=== PATIENT | female | born 1955 | race Caucasian/White ===

== ENCOUNTER 2018-09-03 01:14 | Outpatient (CLI) | payer OTHER, SELFPAY ==
[2018-09-03 11:39] LABS: Glucose 94 mg/dL (70-100)
[2018-09-03 13:28] LABS: Hemoglobin A1C 5.6 % (4.5-6.2)
== END 2018-09-03 01:34 ==
PROVIDERS: PCP Family Medicine; Visit Provider Family Medicine
DX: R73.01 Impaired fasting glucose (principal); E66.01 Morbid (severe) obesity due to excess calories
CPT/HCPCS: 36415; 82947; 83036

== ENCOUNTER 2018-11-10 18:42 | Outpatient (REF) | payer OTHER, SELFPAY ==
--- NOTE | 2018-11-10 15:45 | SKI_PTH ---
PATIENT: Ruby Ahumada LOC: [facility] U#:[id number] AGE/SX: 63/F ROOM: RE11/10/[address]: Martha Nixon : 1955 BED: DIS: 11/10/2018 SPEC #: [id number] RECD: 11/11/18 12:46 STATUS: DARIUS THRASHER #: [id number] KASSIDY: 11/10/18 15:[address]: Martha Nixon DEPT: Surgical Specimen RECD BY: Rody Darnell Tissues: 1 - SKIN BIOPSY(SHAVE/PUNCH) Procedures: SKIN LEVEL 4 Comments: [id number]
== END 2018-11-10 19:02 ==
LOC: NCHCN 18:42
PROVIDERS: PCP Family Medicine; Visit Provider Family Medicine
DX: L82.1 Other seborrheic keratosis (principal); L98.9 Disorder of the skin and subcutaneous tissue, unspecified
CPT/HCPCS: 88305

== ENCOUNTER 2019-02-24 13:57 | Emergency (ER) | payer OTHER, SELFPAY ==
[2019-02-24 14:02] VITALS: BP 149/79; PULSE 62; RESP 18; TEMP 36.7; O2SAT 98
--- NOTE | 2019-02-24 14:36 | ED.GENADUL_ITS ---
Discharge Plan Disposition Patient Disposition: HOME Condition: Improving Discharge Details Chief Complaint: GenMedical Clinical Impression: Pneumonia, Peripheral neuropathy Primary Care Provider: Martha Nixon ED Provider: Amanda Scherer Home Meds and New Rx's Prescriptions: New amoxicillin-pot clavulanate [Augmentin] 875-125 mg tablet 1 tab PO BID 10 Days Qty: 20 RF: 0 prednisone 50 mg tablet 50 mg PO DAILY 5 Days Qty: 5 RF: 0 benzonatate [Tessalon Perles] 100 mg capsule 100 mg PO TID PRN (Reason: cough) Qty: 10 RF: 0 Continued ergocalciferol (vitamin D2) 400 UNIT tablet 2,000 unit PO DAILY RF: 0 cyanocobalamin (vitamin B-12) [Vitamin B-12] 1,000 MCG tablet 1,000 mcg PO DAILY RF: 0 pramipexole 0.5 MG tablet 0.5 mg PO DAILY RF: 0 colesevelam [WelChol] 625 MG tablet 625 mg PO BID RF: 0 omeprazole 20 MG capsule,delayed release(DR/EC) 20 mg PO DAILY RF: 0 furosemide 20 MG tablet 40 mg PO BID RF: 0 Discharge Instructions Instructions: Peripheral Neuropathy (ED), Pneumonia (ED) Additional Instructions: Take the steroids and antibiotics as directed until finished. Use the albuterol inhaled as needed and directed for cough and the tessalon perles as needed and directed for coughing. Follow-up with your primary care doctor this week for reevaluation and for referral to neurology for further work-up of your chronic left hand numbness. Return immediately to the emergency department with any worsening or new co ncerning symptoms. Discharge Data Discharge Physician: Amanda Scherer Medical Decision Making 63-year-old female with a history of GERD, hypertension, hyperlipidemia, IBS who presents with sore throat and cough for the past week. Shortly after evaluation, patient also admitted to hand and forearm tingling and numbness for the past several months, worse episode with full hand numbness last night. Denies any other symptoms of headache, dizziness, blurry vision. Denies any complaint of fever shortness of breath and states she has been eating and drinking normally. Vitals within normal limits. Scattered wheezing which clears with coughing. No focal deficits on exam. Differential diagnosis includes bronchitis, pneumonia, GERD, allergies. The extremity symptoms appear consistent with peripheral neuropathy rather than a central process. Will send for CT head to rule out acute process as well as chest x-ray and give an albuterol neb treatment. Chest x-ray notes a possible left pneumonia. Patient feels better after neb treatment. We will send home with prednisone, Augmentin, albuterol inhaler and Tessalon Perles. CT head negative. Patient instructed to follow-up with a primary care doctor for referral to neurology for reevaluation and possible EMG. Patient instructed to return here immediately with any worsening or new concerning symptoms. Medical Records Medical records reviewed: Yes I reviewed the patient's medical records. Imaging Data Radiologic Study: Radiologist's impression: CRANIAL CT: A noncontrast enhanced examination was performed. There is no evidence of an intra/extra-axial hemorrhage. Regions of diminished absorption in the frontoparietal white matter would be consistent with small vessel disease. The ventricles are unremarkable. There is no evidence of a skull fracture. The paranasal sinuses are unremarkable. There is no evidence of a mastoid effusion. SUMMARY: No acute intracranial abnormality is identified. Radiologic Study #2: Radiologist's impression: PA AND LATERAL CHEST: The right lung is clear. There are densities adjacent to the left hilum, which could represent a region of pneumonitis. The left lung is otherwise clear. There is no pleural effusion. The cardiovascular structures appear intact. SUMMARY: Findings raising the possibility of an acute pneumonitis involving the left lung. Correlation with the patient's clinical status and follow-up imaging is recommended for further review. HPI General Mode of arrival: ambulatory . Date/Time Provider Initiated Documentation: 02/24/19 14:15 . Limitations to Documentation: no limitations . Information obtained by: patient . HPI Narrative: Patient is a 63-year-old female with a history of GERD, hypertension, hyperlipidemia, IBS who presents to the ED with complaint of cough and sore throat for the past week. States her symptoms started with a scratchy throat and then she developed dry cough or chest congestion. She admits to fatigue and hot and cold chills but denies any known fever. She denies any pain with swallowing and states she has been eating drinking normally. She denies any chest pain, shortness of breath, recent hospital admission, recent antibiotics. She has not taken any other medications for symptoms. Shortly after evaluation, patient also complained of left hand and forearm numbness for the past several months. She states symptoms are mainly in her left fourth and fifth fingers with radiation up her medial forearm, but last night she developed numbness in all fingers on the left hand. She denies any headache, blurry vision, dizziness or any other extremity numbness or weakness. She denies any known injury or excessive use of hands with knitting or computer use. Related Data Home Medications Medication Instructions Recorded Confirmed colesevelam [WelChol] 625 mg PO BID 08/21/13 02/24/19 cyanocobalamin (vitamin B-12) 1,000 mcg PO DAILY 08/21/13 02/24/19 [Vitamin B-12] ergocalciferol (vitamin D2) 2,000 unit PO DAILY 08/21/13 02/24/19 furosemide 40 mg PO BID 08/21/13 02/24/19 omeprazole 20 mg PO DAILY 08/21/13 02/24/19 pramipexole 0.5 mg PO DAILY 08/21/13 02/24/19 amoxicillin-pot clavulanate 1 tab PO BID 10 Days #20 tab 02/24/19 [Augmentin] benzonatate [Tessalon Perles] 100 mg PO TID PRN #10 cap 02/24/19 prednisone 50 mg PO DAILY 5 Days #5 tab 02/24/19 Previous Rx's Medication Instructions Recorded amoxicillin-pot clavulanate 1 tab PO BID 10 Days #20 tab 02/24/19 [Augmentin] benzonatate [Tessalon Perles] 100 mg PO TID PRN #10 cap 02/24/19 prednisone 50 mg PO DAILY 5 Days #5 tab 02/24/19 Allergies Allergy/AdvReac Type Severity Reaction Status Date / Time No Known Allergies Allergy Unverified 02/24/19 14:11 General Stated Complaint: GenMedical YENNY: 3 Review of Systems Review of Systems All systems reviewed & are unremarkable except as noted in HPI and below Constitutional Reports as per HPI, Denies chills and Denies fever(s) Eyes Denies blurry vision ENT Denies dizziness, Denies sore throat and Denies throat swelling Cardiovascular Denies chest pain and Denies dyspnea Respiratory Reports cough and Denies dyspnea Gastrointestinal Denies abdominal pain, Denies diarrhea and Denies vomiting Genitourinary Denies hematuria and Denies dysuria Musculoskeletal Denies back pain and Reports numbness Integumentary/Breasts Denies lesions and Denies rash Neurologic Denies dizziness, Denies focal weakness and Reports numbness Allergic/Immunologic Denies throat swelling [facility] Medical History History of IBS (Acute) Hx of hyperlipidemia (Acute) GERD (gastroesophageal reflux disease) (Chronic) HTN (hypertension) (Chronic) Surgical History History of bunionectomy (Acute) H/O section (Chronic) History of tonsillectomy (Chronic) Hx of cholecystectomy (Chronic) Social History Smoking/Tobacco Use Status: Never Alcohol Intake: never Drug use: Never Do you feel safe at home: Yes Do you feel safe in your relationship?: Yes Exam Const General: cooperative and healthy appearing Orientation: alert and awake HENMT Head: normal to inspection Ears: hearing grossly normal bilaterally, external ears normal and TM's normal bilaterally General nose exam: external nose normal Face and sinus: normal facial exam Mouth: oral mucosae normal Teeth and gingiva: dentition normal Throat: posterior oropharynx normal Eyes General: appearance normal, both eyes and all related structures Eyelids: eyelids normal Pupils: PERRL EOM: EOM intact bilaterally Neck Neck: normal visual inspection Lymphatic: no lymphadenopathy noted Chest Chest: normal inspection of the chest Resp Effort & Inspection: normal respiratory effort and able to speak in complete sentences Auscultation: no rhonchi and wheezes scattered wheezes Cardio Rate: regular rate Rhythm: regular rhythm GI Inspection: normal to inspection Palpation: soft, not firm, no guarding, no hepatosplenomegaly, no masses and nontender Auscultation: normal bowel sounds Skin General skin exam: no rashes or lesions noted Neuro General: alert and awake Cognition: normal cognition Speech: speech normal Gait: normal gait Motor: muscle tone normal throughout, strength 5/5 throughout and other (Normal left hand radial/median/ulnar motor nerve function.) Sensory Exam: no sensory deficits noted Extrem General: normal to inspection, full ROM and normal capillary refill Other: Left hand and forearm normal to inspection. No evidence of trauma or rash. No edema, ecchymosis or erythema. Psych Appearance: grossly normal Mental Status: mental status grossly normal Speech and Movement: speech and movement normal Affect: normal affect Thought Process: normal Course Vital Signs Temperature 98.1 F 02/24/19 14:02 Pulse 62 02/24/19 14:02 Respiratory Rate 18 02/24/19 14:02 Blood Pressure 149/79 H 02/24/19 14:02 Pulse Oximetry 98 02/24/19 14:02 Temperature 98.1 F 02/24/19 14:02 Temperature Source Skin 02/24/19 14:02 Pulse 62 02/24/19 14:02 Respiratory Rate 18 02/24/19 14:02 Respiratory Effort 02/24/19 14:09 Respiratory Depth Normal 02/24/19 14:09 Respiratory Pattern Normal 02/24/19 14:09 Blood Pressure 149/79 H 02/24/19 14:02 Pulse Oximetry 98 02/24/19 14:02 Oxygen Delivery Method Room Air 02/24/19 14:02 Oxygen Flow Rate 0 02/24/19 14:02 Pain Level 2 02/24/19 14:02
--- NOTE | 2019-02-24 15:18 | DI.CT_ITS ---
SYMPTOMS/DIAGNOSIS: LEFT HAND NUMBNESS, ? ACUTE CEREBROVASCULAR ACCIDENT CRANIAL CT: A noncontrast enhanced examination was performed. There is no evidence of an intra/extra-axial hemorrhage. Regions of diminished absorption in the frontoparietal white matter would be consistent with small vessel disease. The ventricles are unremarkable. There is no evidence of a skull fracture. The paranasal sinuses are unremarkable. There is no evidence of a mastoid effusion. SUMMARY: No acute intracranial abnormality is identified.
--- NOTE | 2019-02-24 15:26 | DI.RAD_ITS ---
SYMPTOMS/DIAGNOSIS: COUGH, ? ACUTE DISEASE PA AND LATERAL CHEST: The right lung is clear. There are densities adjacent to the left hilum, which could represent a region of pneumonitis. The left lung is otherwise clear. There is no pleural effusion. The cardiovascular structures appear intact. SUMMARY: Findings raising the possibility of an acute pneumonitis involving the left lung. Correlation with the patient's clinical status and follow-up imaging is recommended for further review.
[2019-02-24] MEDS: Albuterol/Ipratropium 3 ML UPD VIAL UPD (15:28)
[2019-02-24 16:45] VITALS: BP 149/79; PULSE 62; RESP 18; O2SAT 98
== END 2019-02-24 16:47 | disposition home or self-care (01) ==
PROVIDERS: Emergency Provider Physician Assistant; PCP Family Medicine
DX: J18.9 Pneumonia, unspecified organism (principal); G62.9 Polyneuropathy, unspecified; I10 Essential (primary) hypertension
CPT/HCPCS: 36415; 94640; 99284; 70450; 71046; J7620

== ENCOUNTER 2019-09-23 01:20 | Outpatient (CLI) | payer OTHER, SELFPAY ==
[2019-09-23 13:18] LABS: Anion Gap 10.2 mmol/L (3-11); BUN 17 mg/dL (7-18); CO2 30.8 mmol/L (21.0-32.0); Calcium 8.8 mg/dL (8.5-10.1); Chloride 103 mmol/L (98-107); Glucose 95 mg/dL (74-106); Potassium 3.9 mmol/L (3.5-5.1); Sodium 144 mmol/L (136-145)
[2019-09-23 13:21] LABS: Hemoglobin A1C 5.6 % (4.5-6.2)
== END 2019-09-23 01:40 ==
PROVIDERS: PCP Family Medicine; Visit Provider Family Medicine
DX: R73.01 Impaired fasting glucose (principal); R60.9 Edema, unspecified
CPT/HCPCS: 36415; 80048; 83036

== ENCOUNTER 2019-11-05 14:43 | Outpatient (CLI) | payer OTHER, SELFPAY ==
--- NOTE | 2019-11-05 | DI.RAD_ITS ---
EXAM: XR CERVICAL SPINE COMP 4-5V CLINICAL HISTORY: NECK PAIN M54.2, OVER A YEAR TECHNIQUE: COMPARISON: No exams were available for comparison FINDINGS: Seven views were obtained. There may be slight narrowing of the intervertebral disc spaces at C5-6 a nd C6-7. Moderate hypertrophic endplate degenerative changes noted. Particularly involving the mid to lower cervical region. Moderate facet degenerative changes noted as well. No erosive or destruct janis lesion. No fracture seen. On the left there is possible neural foraminal narrowing at the C 3 4 level. On the right there is possible neural foraminal narrowing at the C5-6 level Calcified lymph nodes are noted in the cervical region on the left. IMPRESSION: Degenerative changes as described above.
== END 2019-11-05 15:03 ==
PROVIDERS: PCP Family Medicine; Visit Provider Family Medicine
DX: M54.2 Cervicalgia (principal); M47.812 Spondylosis without myelopathy or radiculopathy, cervical region; M50.322 Other cervical disc degeneration at C5-C6 level; M50.323 Other cervical disc degeneration at C6-C7 level
CPT/HCPCS: 72050

== ENCOUNTER 2019-11-19 02:22 | Outpatient (CLI) | payer OTHER, SELFPAY ==
--- NOTE | 2019-11-19 | DI.MAMMO_ITS ---
EXAM: MG MAMMO SCREENING CLINICAL HISTORY: SCREENING, Z12.31. TECHNIQUE: Bilateral full field digital CC and MLO mammographic images were obtained with 3D tomosyn thesis and utilizing computer aided detection (CAD). COMPARISON: Available for comparison. FINDINGS: Masses/Architectural Distortion: None seen. Microcalcifications: No suspicious pleomorphic-type are seen. Skin Thickening/Nipple Retraction: None. IMPRESSION: 1. No significant interval change with no specific features of malignancy noted. 2. Unless there is more urgent need, screening mammography is recommended, as per [place] [employer] guidelines. ACR BI-RAD Category- 1 Negative Breast Density - Category B - Scattered areas of fibroglandular density A negative radiographic report should not delay biopsy if a dominant or clinically suspicious mass is present. Up to ten percent of cancers are not identified on mammography. A negative report may reinforce clinical impression. Adenosis and dense breasts may obscure an underlying neoplasm. False positive reports average 6 to 10%. Patient will receive a letter notifying them of these results.
== END 2019-11-19 02:42 ==
PROVIDERS: PCP Family Medicine; Visit Provider Family Medicine
DX: Z12.31 Encounter for screening mammogram for malignant neoplasm of breast (principal)
CPT/HCPCS: 77063; 77067

== ENCOUNTER 2020-01-20 01:07 | Outpatient (CLI) | payer OTHER, SELFPAY ==
--- NOTE | 2020-01-20 | DI.DEXA_ITS ---
EXAM: XR DEXA BONE DENSITY W/WO PARISH CLINICAL HISTORY: SCREENING FOR OSTEOPOROSIS, Z13.820 TECHNIQUE: COMPARISON: No exams were available for comparison FINDINGS: Lateral Spine Image: Unremarkable. No compression deformities identified. Left hip: Total T-Score: -0.9 Total Z-Score: 0.4 T- and Z-scores: Within normal limits. Lumbar Spine: Total T-Score: 1.7 Total Z-Score: 3.5 T- and Z-scores: Within normal limits. IMPRESSION: No evidence of osteoporosis.
== END 2020-01-20 01:27 ==
PROVIDERS: PCP Family Medicine; Visit Provider Family Medicine
DX: Z13.820 Encounter for screening for osteoporosis (principal); Z78.0 Asymptomatic menopausal state
CPT/HCPCS: 77080

== ENCOUNTER 2020-08-12 04:23 | Outpatient (CLI) | payer OTHER, SELFPAY ==
--- NOTE | 2020-08-12 | DI.RAD_ITS ---
EXAM: XR KNEE LT 3V AP,LAT,NABEEL CLINICAL HISTORY: LT KNEE PAIN,M25.562. TECHNIQUE: 2D digital imaging was performed. COMPARISON: CR XR CHEST 2V PA LATERAL from 02/24/2019 FINDINGS: BONES: No acute fracture is present. No bony destructive lesion is seen. JOINTS: The knee is normally aligned. Small joint effusion. Mild medial compartment joint space narr owing. SOFT TISSUE: Normal. IMPRESSION: Mild degenerative changes of the left knee. Small joint effusion. DATA REPOSITORY: RADIATION DOSE DELIVERED:
== END 2020-08-12 04:43 ==
PROVIDERS: PCP Family Medicine; Visit Provider Family Medicine
DX: M17.12 Unilateral primary osteoarthritis, left knee (principal); M25.462 Effusion, left knee
CPT/HCPCS: 73562

== ENCOUNTER 2020-11-10 04:01 | Outpatient (CLI) | payer OTHER, SELFPAY ==
[2020-11-10 09:35] LABS: HCT 43.1 % (36.0-46.0); HGB 14.5 g/dL (11.2-15.7); MCHC 33.6 % (32.0-36.0); MCV 92.1 fL (80-95); MPV 8.7 fL (8.0-11.0); Platelet Count 190 10^3/uL (130-400); RBC 4.68 10^6/uL (3.93-5.22); RDW 12.7 % (11.7-14.6); RDW-SD 43.1 fL; WBC 6.31 10^3/uL (4.4-10.8)
[2020-11-10 09:48] LABS: Hemoglobin A1C 5.7 % (<5.7)
[2020-11-10 10:48] LABS: ALT 28 U/L (14-59); AST 18 U/L (15-37); Albumin 3.9 g/dL (3.4-5.0); Alkaline Phosphatase 94 U/L (46-116); Anion Gap 8.9 mmol/L (3-11); BUN 14 mg/dL (7-18); Bilirubin, Total 0.5 mg/dL (0.2-1.0); CO2 32.1 mmol/L (21.0-32.0); CREATININE 0.8 mg/dL (0.55-1.02); Calcium 8.9 mg/dL (8.5-10.1); Chloride 102 mmol/L (98-107); Glucose 103 mg/dL (74-106); Potassium 3.5 mmol/L (3.5-5.1); Sodium 143 mmol/L (136-145); Total Protein 7.2 g/dL (6.4-8.2); Vitamin B12 257 pg/mL (193-986)
== END 2020-11-10 04:02 | disposition home or self-care (01) ==
LOC: LBO 04:01
PROVIDERS: PCP Family Medicine; Visit Provider Family Medicine
DX: K52.9 Noninfective gastroenteritis and colitis, unspecified (principal); E66.9 Obesity, unspecified
CPT/HCPCS: 36415; 80053; 85027; 82607; 83036

== ENCOUNTER 2020-12-14 02:17 | Outpatient (CLI) | payer OTHER, SELFPAY ==
--- NOTE | 2020-12-14 13:50 | DI.US_ITS ---
APPROVED REPORT EXAM: Comprehensive 2D, Doppler, and color-flow Echocardiogram Patient Location: Out-Patient [employer] Worker: Allyson Valdes RDCS (AE) Indications: JOE, Orthopnea Other Information Study Quality: Fair. Technically limited study due to body habitus. Conclusion This is a technically limited study. Left Ventricle : The left ventricle is normal size. Left ventricular systolic function is mildly redu nikia. There is normal left ventricular wall thickness. There is normal LV segmental wall motion. The l eft ventricular diastolic function is normal. LVEF is 45-50%. Right Ventricle : The right ventricle is normal size. The right ventricular systolic function is norm al. Atria : The left atrium size is normal. The right atrium size is normal. Valves: There are no hemodynamically significant valvular lesions. Tricuspid Valve : The tricuspid valve is normal in structure. Trace tricuspid regurgitation. Unable t o assess PA pressure. There is no tricuspid valve stenosis. Great Vessels : The aortic root is normal in size. The ascending aorta is mildly dilated. Aortic arch is not well visualized. The IVC was not well visualized. Please see remainder of study for further details. Wall motion Left Ventricle The left ventricle is normal size. Left ventricular systolic function is mildly reduced. There is nor mal left ventricular wall thickness. There is normal LV segmental wall motion. The left ventricular d iastolic function is normal. There is no ventricular septal defect visualized. LVEF is 45-50%. Right Ventricle The right ventricle is normal size. The right ventricular systolic function is normal. Atria The left atrium size is normal. The right atrium size is normal. The interatrial septum is intact wit h no evidence for an atrial septal defect. Aortic Valve The aortic valve is normal in structure. There is no aortic valvular stenosis. No aortic regurgitatio n is present. Mitral Valve Mild mitral annular calcification. No evidence of mitral valve stenosis. Trace mitral regurgitation. Tricuspid Valve The tricuspid valve is normal in structure. There is no tricuspid valve stenosis. Trace tricuspid reg urgitation. Unable to assess PA pressure. Pulmonic Valve The pulmonary valve is normal in structure. There is no pulmonic valvular stenosis. Trace pulmonic re gurgitation. Great Vessels The aortic root is normal in size. The ascending aorta is mildly dilated. Aortic arch is not well vis ualized. The IVC was not well visualized. Pericardium There is no pericardial effusion. 2D Dimensions IVSD d PLAX 1.05 cm F: 0.6-1.0 LV Vol A2C d MOD 80.2 mL LVPW d PLAX 0.96 cm F: 0.6 - 1.0 LV Vol A4C d MOD 130.0 mL LVID d PLAX 4.62 cm F: 3.8 - 5.2 LA vol/ BSA A4C s A-L 29.7 mL/m2 LVDs 3.40 cm F: 2.2 - 3.5 LA Area A4C s MOD 19.31 cm2 Ao Root d 3.07 cm F: 2.7 - 3.3 LV EF A4C MOD 49.7 % RA Area A4C 12.17 cm2 LV EF A2C MOD 45.8 % RA Vol/ BSA A4C s A-L 16.6 mL/m2 LV EF Biplane MOD 49.6 % Ao Asc Diam d 3.56 cm F: 2.3 - 3.1 SV 52.24 mL LV EF Teichholz 51.4 % SV Index 26.67 mL/m2 LVEF (Campos's) 49.56 % F: 54 - 74 LV Volume 79.61 mL F: 46 - 106 LV Volume Index 40.61 mL/m2 F: 29 - 61 LV Vol Biplane MOD 105.4 mL FS 26.15 % M-Mode TAPSE 1.98 cm (M/F) >1.7 LV Diastology MV E' medial 0.128 (>0.07 m/s) E/A Ratio 1.0 LV E/e MED 7.20 (<14) MV E Vmax 0.93 (0.4-1.3 m/s) MV E' lateral 0.100 (>0.1 m/s) MV A Vmax 0.90 (0.4-1.3 m/s) LV E/e LAT 9.25 (<14) MV E/A Ratio 1.03 MV E/E' medial 7.24 MV E/E' lateral 9.27 Aortic Valve LVOT Area 3.08 cm2 AoV Area Vmax 2.51 cm2 LVOT Vmax 1.08 m/s AoV Area/ BSA (Vmax) 1.28 cm2/m2 LVOT Mean Kevin. 0.67 m/s BUFFY Mean Kevin. 2.23 cm2 LVOT Peak Grad 4.6 mmHg BUFFY Mean Kevin. Index 1.14 cm2/m2 LVOT Mean Grad 2.2 mmHg LVOT VTI 0.223 m LVOT Diam s 1.95 cm AoV Vmax 1.32 m/s Velocity Ratio 0.81 AoV Mean Kevin. 0.93 m/s AoV Peak Grad 7.0 mmHg LVOT SV 68.70 mL AoV Mean Grad 3.8 mmHg AoV VTI 0.291 m AoV Area VTI 2.36 cm2 AoV Area/ BSA (VTI) 1.20 cm/m2 Mitral Valve MV DT 182 (160-240 msec) MV PHT 53 msec MV Area PHT 4.16 cm2 MV VTI 0.463 m MV Area VTI 1.48 (4.0-6.0 cm2) Pulmonary Valve PV Vmax 0.99 (0.5-1.5 m/s) RVOT Peak Gr. 1.41 mmHg PV Peak Grad 4.0 mmHg RVOT Mean Gr. 0.80 mmHg PV Mean Grad 2.4 mmHg RVOT VTI 0.149 m PV VTI 0.215 m RVOT Vmax 0.59 m/s
== END 2020-12-14 02:37 ==
PROVIDERS: PCP Family Medicine; Visit Provider Family Medicine
DX: R06.09 Other forms of dyspnea (principal); R06.01 Orthopnea; I77.810 Thoracic aortic ectasia
CPT/HCPCS: 93306

== ENCOUNTER 2021-09-18 15:03 | Outpatient (CLI) | payer OTHER, SELFPAY ==
--- NOTE | 2021-09-18 14:15 | DI.RAD_ITS ---
Exam(s) XR HIP RT 1V XR HIP LT COMPLETE AP PELVIS EXAM: XR HIP LT COMPLETE AP PELVIS and XR right hip CLINICAL HISTORY: anterior groin pain. TECHNIQUE: 2D digital imaging was performed of the left and right hips. Four views were obtained. AP pelvis and lateral left hip views were obtained. COMPARISON: CR XR HIP RT 1V from 09/18/2021 FINDINGS: BONES: No acute fracture is present. No bony destructive lesion is seen. JOINTS: No dislocation present. There is mild narrowing of the joint spaces of the hips bilaterally. The visualized portions of the sacroiliac joints are unremarkable. SOFT TISSUE: Dystrophic calcifications are seen in the soft tissues adjacent to the right greater tro chanter. Calcifications are seen in the pelvis consistent with phleboliths. IMPRESSION: Mild bilateral joint space narrowing of the hips. DATA REPOSITORY: RADIATION DOSE DELIVERED:
== END 2021-09-18 15:04 | disposition home or self-care (01) ==
LOC: DIORS 15:03
PROVIDERS: PCP Family Medicine; Referring Provider Family Medicine; Visit Provider Physician Assistant Surgical
DX: M70.61 Trochanteric bursitis, right hip (principal); M70.62 Trochanteric bursitis, left hip
CPT/HCPCS: 73501; 73502

== ENCOUNTER 2021-09-27 01:40 | Outpatient (CLI) | payer OTHER, SELFPAY ==
--- NOTE | 2021-09-27 06:45 | DI.MRI_ITS ---
Exam(s) MR LOWER JOINT LT WO EXAM: MR LOWER JOINT LT WO CLINICAL HISTORY: LT HIP PAIN, GREATER TROCHANTERIC BURSITIS, M70.62. TECHNIQUE: Multiplanar multisequence MRI was performed. COMPARISON: CR XR HIP LT COMPLETE AP PELVIS from 09/18/2021 CR XR HIP LT COMPLETE AP PELVIS from 09/18/2021 FINDINGS: BONES: There is no fracture or contusion pattern. JOINTS: Articular cartilage is unremarkable. There is a small amount of fluid in the joint space. Right hip: There is hypertensive the of the right gluteus medius musculotendinous unit consistent wit h tendinosis. There is edema in the soft tissues lateral to the right greater trochanter. Left hip: There is mild hyperintensity seen lateral to the left greater trochanter with mild involvem ent of the gluteus medius musculotendinous unit. Right hamstring: Mild hyperintense signal is seen in the common hamstring tendon at its insertion sit e. This is suspicious for tendinosis. MUSCLES: There is otherwise normal signal and size of the visualized muscles. Labrum: The left labrum is grossly unremarkable. The visualized portions of the right labrum are sonya ssly unremarkable. SOFT TISSUES: No soft tissue mass or focal fluid collection is identified. OTHER: IMPRESSION: 1. Findings consistent with bilateral greater trochanteric bursitis, right greater than left. 2. Findings suspicious for right hamstring tendinosis. DATA REPOSITORY:
== END 2021-09-27 02:00 ==
PROVIDERS: PCP Family Medicine; Visit Provider Student in an Organized Health Care Education/Training Program
DX: M25.552 Pain in left hip (principal); M70.62 Trochanteric bursitis, left hip
CPT/HCPCS: 73721

== ENCOUNTER 2021-10-25 01:58 | Outpatient (CLI) | payer OTHER, SELFPAY ==
[2021-10-25 11:59] LABS: Source Nasal/Nares
[2021-10-25 16:13] LABS: COVID-19 PCR Negative (Negative)
== END 2021-10-25 01:59 | disposition home or self-care (01) ==
LOC: LBO 01:58
PROVIDERS: PCP Family Medicine; Visit Provider Student in an Organized Health Care Education/Training Program
DX: Z20.822 Contact with and (suspected) exposure to COVID-19 (principal)
CPT/HCPCS: 87635

== ENCOUNTER 2021-10-25 02:16 | Outpatient (CLI) | payer OTHER, SELFPAY ==
[2021-10-25 09:34] LABS: Hemoglobin A1C 5.8 % (<5.7)
[2021-10-25 10:14] LABS: Anion Gap 7.2 mmol/L (3-11); BUN 21 mg/dL (7-18); CO2 31.8 mmol/L (21.0-32.0); CREATININE 0.8 mg/dL (0.55-1.02); Calcium 9.3 mg/dL (8.5-10.1); Chloride 104 mmol/L (98-107); Glucose 100 mg/dL (74-106); Potassium 3.6 mmol/L (3.5-5.1); Sodium 143 mmol/L (136-145)
== END 2021-10-25 02:17 | disposition home or self-care (01) ==
LOC: LBO 02:16
PROVIDERS: PCP Family Medicine; Visit Provider Family Medicine
DX: R73.03 Prediabetes; R60.9 Edema, unspecified; Z00.00 Encounter for general adult medical examination without abnormal findings
CPT/HCPCS: 36415; 80048; 83036

== ENCOUNTER 2021-10-26 08:46 | Day surgery (SDC) | payer OTHER, SELFPAY ==
[2021-10-26] VITALS (9 sets, daily range): BP systolic 85–137; BP diastolic 51–64; PULSE 50–78; RESP 9–16; TEMP 36.3–36.7; O2SAT 93–100; BMI 42.2
--- NOTE | 2021-10-26 07:07 | W.PM.OP ---
Date of service: 10/26/21 Time of Service: 12:00 Operative Note Operative Note DATE OF PROCEDURE: 10/26/21 PRE-OP DIAGNOSIS: Left 1. Iliotibial band syndrome 2. Trochanteric bursitis 3. Partial gluteal tendon tear POST-OP DIAGNOSIS: same PROCEDURE: Left hip endoscopic iliotibial band release (CPT# 63591) and trochanteric bursectomy (CPT# 93264) SURGEON: Bartolome Dallas [employer]HWALL [employer] OPERATOR: None None ANESTHESIA TYPE: Local By Surgeon and General LMA/ETT Refer to Anesthesia Record ESTIMATED BLOOD LOSS: 10 COMPLICATIONS: None Patient was transported to: PACU Patient's condition: stable Indications: Please see complete medical record for details. Findings: Thickened iliotibial band. Inflamed trochanteric bursitis. Somewhat thin and hypermobile gluteus minimus with largely intact gluteus medius. Procedure Description: In the operating room, general anesthesia was induced. The patient was positioned supine on the [facility] operating room table. All bony prominences were well-padded. Preoperative antibiotics were administered. The hip was prepped and draped in the usual sterile fashion. The correct patient, procedure, and side of the procedure were all verified prior to incision. 40 cc of a 50-50 mixture of 0.25 bupivacaine plain and 1.5% lidocaine with epinephrine was infiltrated about the subcutaneous tissues for the planned anterior lateral and distal anterolateral portals as well as deeply over the greater trochanter. A knife was used to incise the skin for the anterior lateral and distal anterolateral portals followed by blunt dissection subcutaneously. Under fluoroscopic guidance, a switching stick and arthroscope were inserted localizing the iliotibial band over the greater trochanter. Blunt dissection and the mechanical shaver were used to resect fat and overlying tissue about the center of the iliotibial band and carefully expose the anterior and posterior margins. There was significant adipose obscuring usual landmarks. Once there was adequate exposure of the IT band, the greater trochanter was again localized under fluoroscopic guidance with a spinal needle inserted through the skin down to bone. This central area was marked using the radiofrequency ablator. A [place] blade was brought in and used to create a 2 cm longitudinal incision in line with the IT band fibers as well as extending it in a cruciate fashion with 2 cm incisions anteriorly and posteriorly. The radiofrequency ablator was used to achieve hemostasis. The mechanical shaver was then used to debride the IT band released edges exposing the trochanteric bursa. The mechanical shaver was then used to excise the trochanteric bursa taking care to protect musculature about the margins of the greater trochanter as well as neurovascular structures especially posteriorly. There was excellent visualization of the vastus lateralis as well as gluteus medius confirming appropriate bursa excision. The hip was brought through range of motion including internal and external rotation and there was no impinging iliotibial band tissue or remaining pathologic bursa. The viewing and working portals were switched and appropriate IT band release, trochanteric bursa excision, and hemostasis confirmed. Given patient age, activity demands, and largely pain at rest without obvious functional gluteal tendon problem- the decision was made to omit any partial repair. Suction was used to remove fluid from the endoscopic space. The portals were closed using 3-0 Monocryl in a buried fashion. Steri-Strips were applied over the incisions followed by Xeroform, 4 x 4 gauze, an ABD pad, and secured with tape. The patient awoke from anesthesia without complication and was transferred to the recovery room in a stable condition.
[2021-10-26] MEDS: Lactated Ringers 1,000 ML 100 ML IV (09:27)
--- NOTE | 2021-10-26 10:24 | W.ANESPRE ---
General Info Date of Service Date Performed: 10/26/21 Height: 5 ft 1 in Weight: 101.3 kg Body Mass Index (BMI): 42.2 Surgical Procedure: Operation Date: 10/26/21 10:50 Proposed Procedures Side Surgeon p Hip Endoscopy iliotibial band release w/ trochanteric buresectomy, possible gluteal tendon repair Left Bartolome Dallas MD Meds Allergies and Home Medications Allergies Allergy/AdvReac Type Severity Reaction Status Date / Time No Known Allergies Allergy Verified 10/26/21 09:06 Home Medication Medication Instructions Recorded colesevelam [WelChol] 625 mg PO BID 08/21/13 cyanocobalamin (vitamin B-12) 1,000 mcg PO DAILY 08/21/13 [Vitamin B-12] ergocalciferol (vitamin D2) 2,000 unit PO DAILY 08/21/13 furosemide 40 mg PO BID 08/21/13 omeprazole 20 mg PO DAILY 08/21/13 pramipexole 0.5 mg PO DAILY 08/21/13 Current Visit Medications: Current Medications Generic Name Dose Route Start Last Admin Trade Name Freq PRN Reason Stop Dose Admin Ringer's Solution 1,000 mls @ 100 mls/hr 10/26/21 06:00 10/26/21 09:27 IV 11/24/21 23:59 100 mls/hr INFUSION HERMANN Administration Cefazolin Sodium 3,000 mg/ 100 mls @ 200 mls/hr 10/26/21 06:00 Sodium Chloride IVPB 10/26/21 16:00 PREOP HERMANN IV Miscellaneous Supplies 1 each 10/26/21 06:00 Iv Access IV 11/24/21 23:59 DIRECTED HERMANN Naproxen 250 - 500 mg 10/26/21 07:07 Naproxen 500 Mg Tab PO BID PRN PRN Oxycodone HCl 5 - 10 mg 10/26/21 07:07 Oxycodone 5 Mg Tab PO Q4H PRN PRN Sodium Chloride 0 ml 10/26/21 06:00 Normal Saline Flush 10 Ml Syr IV 11/24/21 23:59 PRN PRN Sodium Chloride 0 ml 10/26/21 06:00 Normal Saline 10 Ml Vial IJ 11/24/21 23:59 DIRECTED PRN Sterile Water 0 ml 10/26/21 06:00 Water,Injection,Sterile 10 Ml Vial IJ 11/24/21 23:59 DIRECTED PRN PFSH Active Problems Active Problems: Problem Status Onset Code Sensorineural hearing loss of both ears H90.3 Greater trochanteric bursitis of both hips M70.61, M70.62 Osteoarthritis of left knee M17.12 Iliotibial band tendinitis of left side M76.32 Medical History Medical History (Updated 10/26/21 @ 09:09 by Vamsi Roth) GERD (gastroesophageal reflux disease) History of IBS HTN (hypertension) Hx of hyperlipidemia CAMACHO on CPAP Surgical History Surgical History H/O section History of bunionectomy History of tonsillectomy Hx of cholecystectomy Tobacco Smoking/Tobacco Use Status: Never Alcohol Alcohol Intake: never Substance Use Substance use: Never Substance use type: does not use Vital Signs and Lab Results Vital Signs Most Recent Vital Signs in EMR: Most Recent Vital Signs Temp Pulse Resp BP Pulse Ox 36.7 C 65 16 137/64 97 10/26/21 09:10 10/26/21 09:10 10/26/21 09:10 10/26/21 09:10 10/26/21 09:10 Lab Results Blood Type / Crossmatch: No Data to Display Complete Blood Count: No Data to Display Complete Metabolic Panel: Sodium Level 143 mmol/L (136-145) 10/25/21 09:10 10/25/21 Potassium Level 3.6 mmol/L (3.5-5.1) 10/25/21 09:10 10/25/21 Chloride Level 104 mmol/L (98-107) 10/25/21 09:10 10/25/21 Carbon Dioxide Level 31.8 mmol/L (21.0-32.0) 10/25/21 09:10 10/25/21 Blood Urea Nitrogen 21 mg/dL (7-18) H 10/25/21 09:10 10/25/21 Creatinine 0.8 mg/dL (0.55-1.02) 10/25/21 09:10 10/25/21 Estimated GFR/1.73 m2 >= 60.00 (mL/min/1.73m2) 10/25/21 09:10 10/25/21 Calcium Level 9.3 mg/dL (8.5-10.1) 10/25/21 09:10 10/25/21 Glucose Level 100 mg/dL (74-106) 10/25/21 09:10 10/25/21 Hemoglobin A1c 5.8 % (<5.7) H 10/25/21 09:10 10/25/21 Liver Function Panel: No Data to Display Coagulation Panel: No Data to Display Cardiac Panel: No Data to Display Arterial Blood Gas: No Data to Display Venous Blood Gas: No Data to Display Pancreas Panel: No Data to Display Thyroid Panel: No Data to Display Infectious Disease: Coronavirus (COVID-19)(PCR) Negative (Negative) 10/25/21 08:57 10/25/21 Coronavirus 2019 Source Nasal/Nares 10/25/21 08:57 10/25/21 Blood Cultures: No Data to Display Toxicology Panel: No Data to Display Anesthesia Assessment and Plan Anesthesia History Personal History: No History of Anesthesia Complications Family History: No Family History of Anesthesia Complications Exercise Tolerance Exercise Tolerance: Metabolic Equivalents>4 Pertinent Negatives Pertinent Negatives: No Symptoms of GERD, No Major Cardiovascular Symptoms or Complaints and No History of CVA/TIA Cardiac & Pulmonary Exam Cardiac Exam: Normal S1/S2 Heart Sounds Pulmonary Exam: Clear Bilateral Breath Sounds Implantable Cardiac Device Does patient have a Pacemaker or an ICD?: No Airway Exam Known Difficult Airway: No Mallampati Class: 3 Mouth Opening: Narrow (< 3cm) Thyromental Distance: Greater than 3 cm Neck Range of Motion: Full ROM Neck Circumference: Normal Teeth Condition: Normal Dentition ASA Classification ASA Score: ASA 2 Emergency Case?: No NPO Status NPO Status: NPO Clears >2 hours, Solids >8 hours Anesthesia Plan Resuscitation Status: Full Code Anesthesia Technique: General Anesthesia Airway Planned: LMA Monitors Used: Standard Monitors
[2021-10-26] MEDS: ceFAZolin 3,000 MG in Normal Saline 100 ML 200 MG IVPB (11:40)
[2021-10-26] MEDS: Bupivacaine 0.25% Pres-Free 30 ML VIAL (12:04)
--- NOTE | 2021-10-26 12:46 | DI.RAD_ITS ---
Exam(s) XR HIP LT IN OR EXAM: XR HIP LT IN OR CLINICAL HISTORY: Iliotibial band tendinitis of left hip. TECHNIQUE: 2D digital imaging was performed. COMPARISON: MR MR LOWER JOINT LT WO from 09/27/2021 FINDINGS: Prosperous provided during pain management therapy. See procedure report for details. Total fluoroscopy time= 30 seconds Cumulative dose= 7.52mGy IMPRESSION: DATA REPOSITORY: RADIATION DOSE DELIVERED:
[2021-10-26] MEDS: EPINEPHrine 30 MG/30 ML VIAL (13:01)
[2021-10-26] MEDS: fentaNYL 100 MCG/2 ML VIAL IVP (13:26)
--- NOTE | 2021-10-26 13:48 | PDOC.DSDIS_ITS ---
Discharge Plan Disposition Patient Disposition: HOME Condition: Stable Discharge Details Reason For Visit: Left hip surgery Attending Provider: Bartolome Dallas Primary Care Provider: Martha Nixon Home Meds and New Rx's Prescriptions: New naproxen 250 mg tablet 250 - 500 mg PO BID PRNQty: 20 RF: 0 aspirin 81 mg tablet,delayed release (DR/EC) 81 mg PO DAILY 14 Days Qty: 14 RF: 0 oxycodone 5 mg tablet 5 - 10 mg PO Q4H MDD 30 mg PRN (Reason: moderate to severe pain) Qty: 18 RF: 0 Continued ergocalciferol (vitamin D2) 400 UNIT tablet 2,000 unit PO DAILY RF: 0 cyanocobalamin (vitamin B-12) [Vitamin B-12] 1,000 MCG tablet 1,000 mcg PO DAILY RF: 0 pramipexole 0.5 MG tablet 0.5 mg PO DAILY RF: 0 colesevelam [WelChol] 625 MG tablet 625 mg PO BID RF: 0 omeprazole 20 MG capsule,delayed release(DR/EC) 20 mg PO DAILY RF: 0 furosemide 20 MG tablet 40 mg PO BID RF: 0 Discharge Instructions Additional Instructions: Surgery: Left hip endoscopy with iliotibial band release and trochanteric bursectomy Activity: Weightbearing as tolerated. May use walker or cane as needed for a few days. Gradually advance to full range of motion and activity over the next few weeks. A physical therapy prescription will be sent electronically to start in about 2-3 weeks. Prescriptions: Aspirin 81 mg take 1 daily to prevent a blood clot for 2 weeks Naproxen 250 mg take 1-2 every 12 hours with a meal as needed for moderate pain Oxycodone 5 mg take 1-2 every 4-6 hours as needed for severe pain You may use [id number] Tylenol (acetaminophen) as needed for mild pain. These pain medications may be taken all at once or in different combinations as needed. Also, recommend Colace (docusate) as a stool softener as surgery and pain medicine cause constipation. Dressings: Leave dressing in place for 3 days. May then remove and leave open to air or cover incisions with Band-Aids. May shower after 5 days. Follow-up: 10-[address] Dallas Let us know right away if you develop any redness, drainage, fevers, chest pain, or trouble breathing. Do not drink alcohol or drive for at least 24 hours after anesthesia. Please call the office during business hours with any questions or concerns. Referrals: Bartolome Dallas MD [ [facility] STAFF PHYSICIAN] - Discharge Orders Discharge Orders: Discharge Order (Routine); Ordered 10/26/21 Ordered By: Bartolome Dallas DS: Diagnosis Discharge Diagnosis (1) Iliotibial band tendinitis of left side: Status: Acute (2) Greater trochanteric bursitis of both hips: Status: Acute
[2021-10-26] MEDS: Pramipexole 0.5 MG TAB PO (14:26)
--- NOTE | 2021-10-26 14:31 | W.ANESPOSTOP ---
Postoperative Evaluation Date, Time and Location Date Performed: 10/26/21 Time Performed: 14:31 Patient Location: Day Surgery Unit Vital Signs Most Recent Imported Vital Signs: Most Recent Vital Signs Temp Pulse Resp BP Pulse Ox 36.4 C L 65 16 133/61 94 10/26/21 14:00 10/26/21 14:00 10/26/21 14:00 10/26/21 14:00 10/26/21 14:00 Pain Score Most Recent Pain Score: Most Recent Pain Score Pain Level 2 10/26/21 14:00 Assessment Mental Status: Awake (Alert & Oriented to Patient Baseline) Airway and Respiratory Function: Patent airway with normal (patient baseline) respiratory exam Cardiovascular Function: Hemodynamically Stable Hydration Status: Adequately Hydrated Nausea & Vomiting: No Nausea or Vomiting Pain: Pt. Denies Any Pain Peripheral Nerve Block: Patient did not receive a nerve block Postoperative Comments:: patient complaining of some restless leg intermittently. Her home dose of Mirapex was ordered.
--- NOTE | 2021-10-27 09:57 | PDOC.ANES ---
Date of service: 10/27/21 Time of Service: 09:58 Anesthesia Note Report Anesthesia Note: Called patient to discuss report of decreased tip of tongue sensation as reported during PACU post-op calls. Chart reviewed and patient had LMA 4 placed without comment, patient was able to feel tip of tongue on teeth, but reported it as different than normal. Patient will continue to monitor and call back if symptoms do not improve or resolve.
== END 2021-10-26 15:15 | disposition home or self-care (01) ==
LOC: SUR 08:46
PROVIDERS: PCP Family Medicine; Visit Provider Student in an Organized Health Care Education/Training Program
PROC: (CPT 29863; principal; 2021-10-26 10:30)
DX: M76.32 Iliotibial band syndrome, left leg (principal); M70.62 Trochanteric bursitis, left hip; K21.9 Gastro-esophageal reflux disease without esophagitis; I10 Essential (primary) hypertension; G47.33 Obstructive sleep apnea (adult) (pediatric)
CPT/HCPCS: 27062; 27305; 73501; J0690; J1100; J2001; J2405; J2704; J3010

== ENCOUNTER 2021-11-28 02:04 | Outpatient (CLI) | payer OTHER, SELFPAY ==
--- NOTE | 2021-11-28 11:00 | DI.MAMMO_ITS ---
Exam(s) MAMMO SCREENING EXAM: MAMMO SCREENING CLINICAL HISTORY: SCREENING, Z12.31 TECHNIQUE: Mammograms were interpreted according to the usual protocol including computer analysis w [employer] CAD system, tomosynthesis and C-view imaging. COMPARISON: FINDINGS: The breasts are of moderate density with fairly symmetrical distribution of fibroglandular tissue. N o dominant mass or clumped microcalcification is identified in either breast. The current examinatio n is compared with previous examinations including November 2019 and there has been no gross interval change in appearance in comparison with the prior studies. IMPRESSION: No specific evidence of malignancy at this time. Routine screening examinations are suggested at yea rly intervals in this age group according to the ACS ACR guidelines. BI-RADS Category 1 - Negative Breast Density - Category B - Scattered areas of fibroglandular density
== END 2021-11-28 02:24 ==
PROVIDERS: PCP Family Medicine; Visit Provider Family Medicine
DX: Z12.31 Encounter for screening mammogram for malignant neoplasm of breast (principal)
CPT/HCPCS: 77063; 77067

== ENCOUNTER → 2022-01-26 00:23 | Outpatient (CLI) | payer OTHER, SELFPAY ==
--- NOTE | 2022-01-26 | DI.RAD_ITS ---
Exam(s) XR THORACIC SPINE COMPLETE EXAM: XR THORACIC SPINE COMPLETE CLINICAL HISTORY: THORACIC BACK PAIN, M54.6. TECHNIQUE: 2D digital imaging was performed. Three views. COMPARISON: CR XR CHEST 2V PA LATERAL from 02/24/2019 CR XR DEXA BONE DENSITY W/WO PARISH from 01/20/2020 FINDINGS: BONES: There is no fracture or destructive lesion. Mild dextroscoliosis lower thoracic region. Acce ntuation of the normal thoracic kyphosis. Mild anterior wedging of the lower thoracic vertebral bodi es. Stable from prior. DISKS: Prominent endplate osteophytes are noted throughout. SOFT TISSUE: Visualized lungs are clear. Heart size normal. IMPRESSION: Mild scoliosis. Kyphosis lower thoracic region secondary to mild anterior vertebral body wedging. P rominent endplate osteophytes. DATA REPOSITORY: RADIATION DOSE DELIVERED:
== END ==
PROVIDERS: PCP Family Medicine; Visit Provider Family Medicine
DX: M54.6 Pain in thoracic spine (principal); M40.294 Other kyphosis, thoracic region; M25.78 Osteophyte, vertebrae
CPT/HCPCS: 72072

== ENCOUNTER → 2022-02-16 00:50 | Outpatient (CLI) | payer OTHER, SELFPAY ==
--- NOTE | 2022-02-16 10:13 | DI.RAD_ITS ---
Exam(s) XR LUMBAR SPINE COMPLETE EXAM: XR LUMBAR SPINE COMPLETE CLINICAL HISTORY: LOW BACK PAIN, CHRONIC M54.9. TECHNIQUE: 2D digital imaging was performed. COMPARISON: CR XR DEXA BONE DENSITY W/WO PARISH from 01/20/2020 FINDINGS: Seven views No evidence of acute fracture nor listhesis. Hyperlordosis is again noted as seen on the DEXA scan of 2019. There are prominent anterior osteophytes in the upper lumbar spine and disc space narrowing at these levels. There is relative preservation of disc height at the lower 3 levels. There is significant fac et arthropathy at the lower 2 levels. Sacroiliac joints exhibit some degenerative change but no ankyl osis. There is no prominent scoliosis. IMPRESSION: Degenerative changes as described above. DATA REPOSITORY: RADIATION DOSE DELIVERED:
== END ==
PROVIDERS: PCP Family Medicine; Visit Provider Family Medicine
DX: M47.816 Spondylosis without myelopathy or radiculopathy, lumbar region (principal); M51.36 Other intervertebral disc degeneration, lumbar region; M54.59 Other low back pain
CPT/HCPCS: 72110

== ENCOUNTER 2022-09-02 06:49 | Emergency (ER) | payer OTHER, SELFPAY ==
[2022-09-02 06:56] VITALS: BP 145/62; PULSE 61; RESP 18; TEMP 37.2; O2SAT 95
--- NOTE | 2022-09-02 07:42 | ED.GENADUL_ITS ---
Discharge Plan Disposition Patient Disposition: Home Condition: Stable Discharge Details Clinical Impression: Maribeth infection Primary Care Provider: Martha Nixon ED Provider: Balta Lujan Home Meds and New Rx's Prescriptions: New nystatin 100,000 unit/gram powder 1 applic topical BID Qty: 15 0RF No Action ergocalciferol (vitamin D2) 400 UNIT tablet 2,000 unit PO DAILY Label Comments: pt states she just takes 1 tab 2000 units cyanocobalamin (vitamin B-12) [Vitamin B-12] 1,000 MCG tablet 1,000 mcg PO DAILY pramipexole 0.5 MG tablet 0.5 mg PO DAILY colesevelam [WelChol] 625 MG tablet 625 mg PO BID furosemide 20 MG tablet 40 mg PO BID phentermine 15 mg capsule 1 cap PO DAILY ropinirole 4 mg tablet 1 tab PO DAILY Discharge Instructions Instructions: Antifungals (On the skin) Additional Instructions: Please use medication as prescribed. Please return to the emergency department for any worsening symptoms. Please follow-up with your primary care physician. Medical Decision Making 67-year-old female presents with likely fungal infection to intertrigus space between breasts and abdominal wall, superficial erythema/skin irritation with obvious fungal component, no fluctuance no purulence no vesicles. Patient is hemodynamically stable. Will prescribe nystatin topical powder. Home care instructions and return precautions given. Sign Out No HPI General Date/Time Provider Initiated Documentation: 09/02/22 07:39 . HPI Narrative: 67-year-old female, presents with several days of irritation under her breasts, has noted a rash has been putting ketoconazole on it without effect. Related Data Home Medications Medication Instructions Recorded Confirmed colesevelam 625 mg tablet (WelChol) 625 mg PO BID 08/21/13 09/02/22 cyanocobalamin (vitamin B-12) 1,000 mcg PO DAILY 08/21/13 09/02/22 1,000 mcg tablet (Vitamin B-12) ergocalciferol (vitamin D2) 10 mcg 2,000 unit PO DAILY 08/21/13 09/02/22 (400 unit) tablet furosemide 20 mg tablet 40 mg PO BID 08/21/13 09/02/22 pramipexole 0.5 mg tablet 0.5 mg PO DAILY 08/21/13 12/27/21 nystatin 100,000 unit/gram topical 1 applic topical BID #15 grams 09/02/22 powder phentermine 15 mg capsule 1 cap PO DAILY 09/02/22 09/02/22 ropinirole 4 mg tablet 1 tab PO DAILY 09/02/22 09/02/22 Previous Rx's Medication Instructions Recorded nystatin 100,000 unit/gram topical 1 applic topical BID #15 grams 09/02/22 powder Allergies Allergy/AdvReac Type Severity Reaction Status Date / Time No Known Allergies Allergy Verified 09/02/22 06:58 General Stated Complaint: RashLesion YENNY: 4 Review of Systems Narrative: Review of Systems Constitutional: negative Eyes: negative ENT: negative Cardiovascular: negative Respiratory: negative Gastrointestinal: negative : negative Musculoskeletal: negative Skin: Rash Neurologic: negative Psych: negative PFSH All Active Problems (Updated 09/02/22 @ 07:49 by Balta Lujan MD) Maribeth infection (Acute) Sensorineural hearing loss of both ears (Acute) Greater trochanteric bursitis of both hips (Acute) Osteoarthritis of left knee (Acute) Iliotibial band tendinitis of left side (Acute) Medical History GERD (gastroesophageal reflux disease) History of IBS HTN (hypertension) Hx of hyperlipidemia CAMACHO on CPAP Surgical History H/O section History of bunionectomy History of tonsillectomy Hx of cholecystectomy Social History Smoking/Tobacco Use Status: Never Smoking risk assessment performed?: Yes Alcohol Intake: current Alcohol Intake frequency: holidays/special occasions only Drug use: Never Substance use type: does not use Current gender identity: female Do you feel safe at home: Yes Do you feel safe in your relationship?: Yes Exam Narrative Exam Narrative: Physical Examination General: alert, awake, cooperative, resting comfortably, no acute distress HEENT: normocephalic, atraumatic; PERRL, EOM intact, conjunctiva normal; no nasal discharge; moist mucous membranes, oral and pharyngeal mucosa normal, tolerating secretions Neck: supple, trachea midline; full ROM Chest: normal to inspection Respiratory: normal respiratory effort, speaking in full sentences, clear to auscultation, no wheezing, rales or rhonchi Cardiac: regular rate, regular rhythm, S1S2 intact, no murmurs rubs or gallops GI: abdomen soft, non-tender, non-distended; no palpable mass or hepatosplenomegaly Skin: Erythematous skin below bilateral breasts and adjacent superior abdominal wall skin, some area of superficial maceration and likely component of fungal infection, no vesicles no fluctuance no lymphangitic streaking Neuro: AAOx3, normal speech, moving all extremities Psych: Appropriate mood and affect Course Vital Signs Vital signs: Vital Signs Temperature 37.2 C 09/02/22 06:56 Pulse 61 09/02/22 06:56 Respiratory Rate 18 09/02/22 06:56 Blood Pressure 145/62 H 09/02/22 06:56 Pulse Oximetry 95 09/02/22 06:56 Temperature 37.2 C 09/02/22 06:56 Temperature Source Temporal Artery Scan 09/02/22 06:56 Pulse 61 09/02/22 06:56 Respiratory Rate 18 09/02/22 06:56 Respiratory Effort Non-Labored 09/02/22 07:00 Blood Pressure 145/62 H 09/02/22 06:56 Blood Pressure Position Sitting 09/02/22 06:56 Pulse Oximetry 95 09/02/22 06:56 Oxygen Delivery Method Room Air 09/02/22 06:56 Oxygen Flow Rate 0 09/02/22 06:56
[2022-09-02] MEDS: Nystatin POWDER 15 GM JAR TP (08:23)
== END 2022-09-02 08:35 | disposition home or self-care (01) ==
PROVIDERS: Emergency Provider Emergency Medicine; PCP Family Medicine
DX: B37.2 Candidiasis of skin and nail (principal)
CPT/HCPCS: 99283

== ENCOUNTER 2022-09-12 17:01 | Outpatient (REF) | payer OTHER, SELFPAY | END 2022-09-12 17:02 | disposition home or self-care (01) | LOC: NCHCN 17:01 | PROVIDERS: PCP Family Medicine; Visit Provider Family Medicine | DX: L02.421 Furuncle of right axilla (principal) | CPT/HCPCS: 87077; 87070; 87186; 87205 ==

== ENCOUNTER 2022-11-18 10:03 | Emergency (ER) | payer OTHER, SELFPAY ==
[2022-11-18] VITALS (25 sets, daily range): BP systolic 101–142; BP diastolic 48–86; PULSE 55–97; RESP 1–22; TEMP 36.3–36.4; O2SAT 92–100
--- NOTE | 2022-11-18 10:00 | RT.EKG_ITS ---
APPROVED REPORT Exam: Resting ECG Reason for Exam: SOB Patient Location: E HR:67 bpm ECG Measurements Heart Rate 67 AXIS PA 121 P 35 QRSd 159 QRS -79 QT 455 T -35 QTc 481 Conclusion Sinus rhythm...normal P axis, V-rate 60- 99 RBBB and LAFB...QRSd >120mS, axis(-40,240) Physician: Mild progression of RBBB compared to prior
--- NOTE | 2022-11-18 11:08 | ED.GENADUL_ITS ---
Discharge Plan Disposition Patient Disposition: Home Condition: Improving Discharge Details Clinical Impression: Dyspnea Primary Care Provider: Martha Nixon ED Provider: Mike Black Home Meds and New Rx's Prescriptions: Continued ergocalciferol (vitamin D2) 400 UNIT tablet 2,000 unit PO DAILY Patient Comments: pt states she just takes 1 tab 2000 units cyanocobalamin (vitamin B-12) [Vitamin B-12] 1,000 MCG tablet 1,000 mcg PO DAILY pramipexole 0.5 MG tablet 0.5 mg PO DAILY colesevelam [WelChol] 625 MG tablet 625 mg PO BID furosemide 20 MG tablet 40 mg PO BID phentermine 15 mg capsule 1 cap PO DAILY ropinirole 4 mg tablet 1 tab PO DAILY nystatin 100,000 unit/gram powder 1 applic topical BID Qty: 15 0RF nystatin 100,000 unit/gram powder 1 applic topical BID Qty: 60 0RF Discharge Instructions Instructions: Dyspnea (ED) Additional Instructions: You may use the provided inhaler 1 to 2 puffs every 4 hours as needed for shortness of breath or chest tightness. We have placed a referral for you to follow-up with pulmonology and please call their office on Saturday for arrangement of your follow-up appointment. If not improving over the next week please follow-up with your primary care provider for reassessment as well and as always if you have any new or significant worsening of condition feel free to return to the emergency department for reassessment. Referrals: Martha Nixon MD [Primary Care Provider] - 1 week Discharge Data Discharge Date/Time-TO BE ENTERED AT DEPARTURE: 11/18/22 14:51 Medical Decision Making Patient presenting to the emergency department for chief complaint of shortness of breath and excessive yawning because she cannot catch her breath. She states this is been going on for a while and was placed on CPAP which is not helping. She denies any edema, pain including chest pain, fever chills cough or other symptoms. Patient has significant past medical history of hyperlipidemia, hypertension, and obstructive sleep apnea. Vital signs show no hypoxia, no hypotension, slight tachypnea of 22 patient is afebrile with no tachycardia. Physical exam shows clear lung sounds, normal cardiac exam, no edema effusion murmur or JVD is noted. We will perform EKG and labs due to patient's history and complaint of shortness of breath. While lung sounds are clear we will give trial of DuoNeb to see if this helps with patient's perceived shortness of breath. Patient is in no signs of respiratory distress. Please see physician interpretation for full interpretation of EKG. Patient is in sinus rhythm, bundle branch block is noted which does seem to have changed since previous EKG but last EKG available is 2004. We will continue to monitor but have lower suspicion for ACS given chronic complaint of patient's condition along with patient denying any pain at this time. Labs reviewed and CBC is unremarkable, D-dimer slightly elevated at 851, CMP is unremarkable, negative initial troponin, negative BNP. Chest x-ray was reviewed and shows no acute findings but given elevated D-dimer and patient complaining of shortness of breath will advance to CT imaging of the chest. Reviewed CTA imaging for evaluation of PE or other abnormality which radiologist showed no acute findings noted. Patient was reassessed and states slight improvement after nebulizer so we will give additional nebulizer pending delta troponin. Upon discussing patient's symptoms he says that this has been going on for years but just seems to be acutely worsening over the last 2 weeks. Given suspected negative work-up in the emergency department and patient stating that she seen her primary care provider and does not seem to be helping we will place patient on referral to pulmonology clinic for further evaluation of her shortness of breath. Delta troponin was negative. Patient did state again some further improvement with DuoNeb. We will send patient home with albuterol inhaler to use as needed. Given benign work-up here in the emergency department today I am fine discharging patient but did discuss with patient return and follow-up precautions pending her specialty appointment clinic. After discussion of diagnosis and plan of care patient has no further needs, questions, or concerns and states clear understanding to return to the emergency department for any worsening symptoms. This documentation was generated using [employer] system, please disregard any oddities of phrase or misspellings. Lab Data Lab results reviewed: Yes I reviewed the patient's lab results. HPI General Mode of arrival: ambulatory . Date/Time Provider Initiated Documentation: 11/18/22 10:09 . Limitations to Documentation: no limitations . Information obtained by: patient and RN notes reviewed . History of Present Illness 67 year old F presents to the emergency department with the chief complaint of Shortness of breath, described as moderate and similar to prior episodes, Quality is described as other (Denies pain or discomfort), Patient started experiencing this month(s) and it has been constant. No relieving factors improve symptom(s), No exacerbating factors reported . Patient notes no other symptoms.. Patient did receive the following treatments prior to arrival, none Related Data Home Medications Medication Instructions Recorded Confirmed colesevelam 625 mg tablet (WelChol) 625 mg PO BID 08/21/13 11/18/22 cyanocobalamin (vitamin B-12) 1,000 mcg PO DAILY 08/21/13 11/18/22 1,000 mcg tablet (Vitamin B-12) ergocalciferol (vitamin D2) 10 mcg 2,000 unit PO DAILY 08/21/13 11/18/22 (400 unit) tablet furosemide 20 mg tablet 40 mg PO BID 08/21/13 11/18/22 pramipexole 0.5 mg tablet 0.5 mg PO DAILY 08/21/13 12/27/21 nystatin 100,000 unit/gram topical 1 applic topical BID #15 grams 09/02/22 powder nystatin 100,000 unit/gram topical 1 applic topical BID #60 grams 09/02/22 powder phentermine 15 mg capsule 1 cap PO DAILY 09/02/22 11/18/22 ropinirole 4 mg tablet 1 tab PO DAILY 09/02/22 11/18/22 Previous Rx's Medication Instructions Recorded nystatin 100,000 unit/gram topical 1 applic topical BID #15 grams 09/02/22 powder nystatin 100,000 unit/gram topical 1 applic topical BID #60 grams 09/02/22 powder Allergies Allergy/AdvReac Type Severity Reaction Status Date / Time No Known Allergies Allergy Verified 11/18/22 10:17 General Stated Complaint: SOB YENNY: 3 Review of Systems Constitutional Constitutional: Denies chills, Denies fever(s) and Denies malaise Cardiovascular Cardiovascular: Denies chest pain, Denies chest pain with activity, Denies syncope, Denies irregular heart rhythm, Denies palpitations, Reports dyspnea and Reports dyspnea on exertion Respiratory Respiratory: Denies cough, Denies hemoptysis, Reports dyspnea and Reports dyspnea on exertion Gastrointestinal Gastrointestinal: Denies abdominal pain, Denies nausea and Denies vomiting Neurologic Neurologic: Denies syncope Psychiatric Psychiatric: Denies anxiety Endocrine Endocrine: Denies cold intolerance, Denies heat intolerance and Denies palpitations PFSH All Active Problems (Updated 11/18/22 @ 14:20 by Mike Black NP) Dyspnea (Acute) Sensorineural hearing loss of both ears (Acute) Greater trochanteric bursitis of both hips (Acute) Osteoarthritis of left knee (Acute) Iliotibial band tendinitis of left side (Acute) Medical History GERD (gastroesophageal reflux disease) History of IBS HTN (hypertension) Hx of hyperlipidemia CAMACHO on CPAP Surgical History H/O section History of bunionectomy History of tonsillectomy Hx of cholecystectomy Social History Smoking/Tobacco Use Status: Never Smoking risk assessment performed?: Yes Alcohol Intake: current Alcohol Intake frequency: holidays/special occasions only Drug use: Never Substance use type: does not use Current gender identity: female Do you feel safe at home: Yes Do you feel safe in your relationship?: Yes Exam Const General: cooperative, comfortable, no acute distress, not diaphoretic and not ill appearing Orientation: alert, awake and oriented x3 Limitations: mental status not altered Neck Neck: normal visual inspection, full ROM, trachea midline, supple and no anterior neck swelling Carotids: normal carotid upstroke and no bruits Resp Effort & Inspection: normal respiratory effort, able to speak in complete sentences and tachypneic Auscultation: clear to auscultation bilaterally Cardio Jugular venous pressure: no JVD Palpation: normal PMI Rate: regular rate Rhythm: regular rhythm Heart Sounds: S1 normal, S2 normal, no click, no gallops, no murmurs and no rubs Bruits: no abdominal aortic bruits and no carotid bruits Pulses: radial pulses present bilaterally 2+ Skin General skin exam: no rashes or lesions noted Neuro General: patient alert, patient awake, patient oriented x3, tone normal and moves all extremities Course Vital Signs Vital signs: Vital Signs Temperature 36.3 C L 11/18/22 10:14 Pulse 76 11/18/22 10:14 Respiratory Rate 22 11/18/22 10:14 Blood Pressure 133/86 11/18/22 10:14 Pulse Oximetry 98 11/18/22 10:14 Temperature 36.3 C L 11/18/22 10:14 Temperature Source Oral 11/18/22 10:14 Pulse 76 11/18/22 10:14 Respiratory Rate 22 11/18/22 10:18 Respiratory Effort Normal, Non-Labored 11/18/22 10:18 Respiratory Depth Normal 11/18/22 10:18 Respiratory Pattern Normal 11/18/22 10:18 Blood Pressure 133/86 11/18/22 10:14 Blood Pressure Position Sitting 11/18/22 10:14 Pulse Oximetry 98 11/18/22 10:14 Oxygen Delivery Method Room Air 11/18/22 10:14 Oxygen Flow Rate 0 11/18/22 10:14 Pain Level 0 11/18/22 10:14
[2022-11-18 11:14] LABS: Abs Immature Grans 0.01 10^3/uL (0.0-0.06); Absolute Basophil Count 0.02 10^3/uL (0.0-0.2); Absolute Lymphocyte Count 2.28 10^3/uL (1.2-3.4); Absolute Monocyte Count 0.77 10^3/uL (0.1-0.8); Basophils % 0.3; Eosinophils % 1.4; HCT 41.4 % (36.0-46.0); Immature Grans % 0.1; Lymphocytes % 30.9; MCH 31.3 pg (27.0-33.0); MCHC 33.8 % (32.0-36.0); MCV 93 fL (80-95); MPV 9.2 fL (8.0-11.0); Monocytes % 10.4; Neutrophils % 56.9; Platelet Count 193 10^3/uL (130-400); RBC 4.47 10^6/uL (3.93-5.22); RDW 12.9 % (11.7-14.6); WBC 7.38 10^3/uL (4.4-10.8)
--- NOTE | 2022-11-18 11:35 | DI.RAD_ITS ---
Exam(s) XR CHEST 2V PA LATERAL EXAM: XR CHEST 2V PA LATERAL CLINICAL HISTORY: Shortness of breath. TECHNIQUE: 2D digital imaging was performed. COMPARISON: CR XR CHEST 2V PA LATERAL from 02/24/2019 FINDINGS: 2 views: There is mild cardiomegaly. The mediastinum is not widened. Lungs are clear. No infiltrates nor pleural effusions. IMPRESSION: No acute pulmonary findings.Moderate cardiomegaly noted. DATA REPOSITORY: RADIATION DOSE DELIVERED:
[2022-11-18 11:37] LABS: ALT 23 U/L (14-59); AST 20 U/L (15-37); Albumin 3.7 g/dL (3.4-5.0); Alkaline Phosphatase 89 U/L (46-116); Anion Gap 6.6 mmol/L (3-11); BUN 15 mg/dL (7-18); Bilirubin, Total 0.4 mg/dL (0.2-1.0); CO2 30.4 mmol/L (21.0-32.0); Chloride 105 mmol/L (98-107); Estimated GFR 60.98 (mL/min/1.73m2); Glucose 90 mg/dL (74-106); Magnesium 2.1 mg/dL (1.8-2.4); NT-proBNP 42 pg/mL (<300); Potassium 3.9 mmol/L (3.5-5.1); Sodium 142 mmol/L (136-145); Total Protein 7.4 g/dL (6.4-8.2); Troponin I < 50 ng/L (<or=60)
[2022-11-18] MEDS: Albuterol/Ipratropium 3 ML UPD VIAL UPD ×2 (11:41→13:00)
--- NOTE | 2022-11-18 11:43 | DI.VRAD_ITS ---
PROCEDURE INFORMATION: Exam: XR Chest Exam date and time: 11/18/2022 11:31 AM Age: 67 years old Clinical indication: Shortness of breath TECHNIQUE: Imaging protocol: Radiologic exam of the chest. Views: 2 views. COMPARISON: CR XR CHEST 2V PA LATERAL 02/24/2019 3:20 PM FINDINGS: Lungs: Unremarkable. No consolidation. Pleural spaces: Unremarkable. No pleural effusion. No pneumothorax. Heart/Mediastinum: Unremarkable. No cardiomegaly. Bones/joints: Unremarkable. IMPRESSION: No acute findings. Dictated and Authenticated by: Mynor Carrasco MD. Ordering:FITZ Mckeon MD
--- NOTE | 2022-11-18 11:45 | DI.CT_ITS ---
Exam(s) CT CHEST PE CTA EXAM: CT CHEST PE CTA CLINICAL HISTORY: Shortness of breath. TECHNIQUE: Imaging Protocol: CT angiography of the chest was performed using pulmonary embolus krystin col. Multi planar reconstructions were performed. CONTRAST MATERIAL: Intravenous: Omnipaque 350 Contrast volume: 100 cc COMPARISON: No exams were available for comparison FINDINGS: CHEST: PULMONARY ARTERIES: There are no intraluminal filling defects to suggest acute pulmonary emboli. LUNGS: There are no infiltrates nor evidence of pulmonary infarction.. There are no pleural effusions . MEDIASTINUM: There is no hilar nor mediastinal adenopathy. Visualized thyroid unremarkable. CARDIAC: There is cardiomegaly. No pericardial effusion.Caliber of the thoracic aorta is within norm al limits. No evidence of aortic dissection. There is no significant shift of the interventricular s eptum. PARTIALLY VISUALIZED UPPERMOST ABDOMEN: No obvious findings OSSEOUS: No significant osseous lesions.. IMPRESSION: 1. No evidence of acute pulmonary emboli. No evidence of pulmonary infarction.No pleural effusions. 2. No confluent infiltrates nor intrathoracic adenopathy. 3. Cardiomegaly. No pericardial effusion. No evidence of aortic dissection. RADIATION DOSE DELIVERED: 610.26mGy.cm Total DLP DATA REPOSITORY: All CT scans at this facility are submitted to the National Radiology Data Registry (NRDR) Dose Index Registry (DIR) with the [employer] (ACR). RADIATION OPTIMIZATION: All CT scans at this facility use at least one of these dose optimization te chniques: automated exposure control; mA and/or kV adjustment per patient size (includes targeted exa ms where dose is matched to clinical indication); or iterative reconstruction.
[2022-11-18] MEDS: Normal Saline Flush 10 ML SYR IVP (12:25)
[2022-11-18] MEDS: Normal Saline - Diluent 50 ML VIAL IJ (12:26)
[2022-11-18] MEDS: Omnipaque 350 MG/ML 100 ML BTL IJ (12:27)
--- NOTE | 2022-11-18 12:46 | DI.VRAD_ITS ---
PROCEDURE INFORMATION: Exam: CTA Chest With Contrast Exam date and time: 11/18/2022 12:23 PM Age: 67 years old Clinical indication: Other: SOB TECHNIQUE: Imaging protocol: Computed tomographic angiography of the chest with contrast. 3D rendering (Not supervised by radiologist): MIP and/or 3D reconstructed images were created by the technologist. Radiation optimization: All CT scans at this facility use at least one of these dose optimization techniques: automated exposure control; mA and/or kV adjustment per patient size (includes targeted exams where dose is matched to clinical indication); or iterative reconstruction. Contrast material: OMNIPAQUE 350; Contrast volume: 100 ml; Contrast route: INTRAVENOUS (IV); COMPARISON: CR XR CHEST 2V PA LATERAL 11/18/2022 11:31 AM FINDINGS: Pulmonary arteries: Normal. No pulmonary emboli. Aorta: Unremarkable. No aortic aneurysm. No aortic dissection. Lungs: Low lung volumes. No lung consolidation. Pleural spaces: Unremarkable. No pneumothorax. No pleural effusion. Heart: Cardiomegaly. Lymph nodes: Unremarkable. No enlarged lymph nodes. Spleen: Calcified splenic granulomas. Bones/joints: Unremarkable. No acute fracture. Soft tissues: Unremarkable. IMPRESSION: No acute findings. Dictated and Authenticated by: Mynor Carrasco MD. Ordering:FITZ Mckeon MD
--- NOTE | 2022-11-18 13:08 | NUR.NOTE ---
Referral made to Pulmonology for acute on chronic SOB when the next appt is avail. Put the referral in the care manger's box for follow up assistance.Nursing Note:
[2022-11-18 14:13] LABS: Troponin I < 50 ng/L (<or=60)
[2022-11-18] MEDS: Albuterol HFA 8 GM 60 PUFF INH IH (14:36)
[2022-11-18] MEDS: Inhaler, Assist Device 1 EACH MC (14:37)
[2022-11-18 14:50] LABS: D-Dimer 751 ng/mlFEU (<500)
== END 2022-11-18 14:51 | disposition home or self-care (01) ==
PROVIDERS: Emergency Provider Nurse Practitioner Family; PCP Family Medicine
DX: R06.00 Dyspnea, unspecified (principal); I10 Essential (primary) hypertension; R06.82 Tachypnea, not elsewhere classified; I45.4 Nonspecific intraventricular block; R79.1 Abnormal coagulation profile
CPT/HCPCS: 36415; 71275; 80053; 93005; 94640; 99285; 71046; 83735; 83880; 84484; 85025; 85379; 93010; 99284; J3490; J7620

== ENCOUNTER 2022-11-28 11:26 | Outpatient (REF) | payer OTHER, SELFPAY ==
[2022-11-28 15:40] LABS: HCT 43.6 % (36.0-46.0); HGB 14.5 g/dL (11.2-15.7); MCH 30.9 pg (27.0-33.0); MCHC 33.3 % (32.0-36.0); MCV 93 fL (80-95); MPV 9.1 fL (8.0-11.0); Platelet Count 223 10^3/uL (130-400); RDW 12.5 % (11.7-14.6); RDW-SD 42.6 fL; WBC 6.42 10^3/uL (4.4-10.8)
[2022-11-28 16:17] LABS: Hemoglobin A1C 5.8 % (<5.7)
[2022-11-28 16:41] LABS: Anion Gap 10.4 mmol/L (3-11); BUN 20 mg/dL (7-18); CO2 25.6 mmol/L (21.0-32.0); CREATININE 1.1 mg/dL (0.55-1.02); Calcium 9.4 mg/dL (8.5-10.1); Chloride 103 mmol/L (98-107); Cholesterol 170 mg/dL (<200); Estimated GFR 54.39 (mL/min/1.73m2); Ferritin 205 ng/mL (8-252); Folate > 20.0 ng/mL (8.6-20.0); Glucose 124 mg/dL (74-106); Potassium 4.1 mmol/L (3.5-5.1); Sodium 139 mmol/L (136-145); Triglyceride 217 mg/dL (<150); Vitamin B12 484 pg/mL (193-986)
[2022-11-28 16:55] LABS: Calculated LDL 69 mg/dL (<100); HDL Cholesterol 58 mg/dL (40-60)
== END 2022-11-28 11:27 | disposition home or self-care (01) ==
LOC: NCHCN 11:26
PROVIDERS: PCP Family Medicine; Visit Provider Family Medicine
DX: E53.8 Deficiency of other specified B group vitamins (principal); G25.81 Restless legs syndrome; R73.03 Prediabetes; R60.0 Localized edema; I10 Essential (primary) hypertension; G47.00 Insomnia, unspecified; I45.4 Nonspecific intraventricular block
CPT/HCPCS: 80048; 80061; 85027; 82607; 82728; 82746; 83036

== ENCOUNTER 2022-12-20 01:16 | Outpatient (CLI) | payer OTHER, SELFPAY ==
--- NOTE | 2022-12-20 10:30 | DI.MRI_ITS ---
Exam(s) MR BRAIN WO EXAM: MR BRAIN WO CLINICAL HISTORY: INTRACTABLE YAWNING, CONCERN FOR SEIZURE, R56.9 TECHNIQUE: Multiplanar multisequence MRI of the brain was performed. Thin T2 coronal sequence performed in addition to routine sequences. COMPARISON: No exams were available for comparison FINDINGS: VENTRICLES AND EXTRA AXIAL SPACES: Normal in size and morphology for the patient's age. MIDLINE SHIFT : None. CEREBRAL PARENCHYMA: No focus of restricted diffusion to suggest acute infarct. No space-occupying le eduardo identified. Patchy areas of high signal in the white matter consistent with sequela of chronic m icrovascular ischemia. Temporal lobes are symmetric. HEMORRHAGE: None. BRAINSTEM/CEREBELLUM: Normal. VISUALIZED PARANASAL SINUSES/MASTOIDS:Clear. Vasculature: Normal flow void. PITUITARY GLAND: Unremarkable. ORBITS: Unremarkable. IMPRESSION: White matter changes consistent with small vessel disease. No acute abnormality. DATA REPOSITORY:
== END 2022-12-20 01:36 ==
LOC: DI 01:17
PROVIDERS: PCP Family Medicine; Visit Provider Family Medicine
DX: R56.9 Unspecified convulsions (principal); F45.8 Other somatoform disorders; I67.89 Other cerebrovascular disease
CPT/HCPCS: 70551

== ENCOUNTER 2022-12-20 02:56 | Outpatient (CLI) | payer OTHER, SELFPAY ==
--- NOTE | 2022-12-21 21:46 | PDOC.EEG ---
Neurology EEG EEG: [facility] Department of Neurology EEG REPORT Date of Recordin12/20/22 Interpreting Physician: Dr. Judi Beltrán PCP/Referring Provider: Dr. Martha Nixon Reason for study: Ruby Ahumada is a 67 year-old with intractable yawning concerning for seizures. Current Medications: Home Medications Medication Instructions Recorded Confirmed Type colesevelam 625 mg tablet (WelChol) 625 mg PO BID 08/21/13 11/18/22 History cyanocobalamin (vitamin B-12) 1,000 mcg PO DAILY 08/21/13 11/18/22 History 1,000 mcg tablet (Vitamin B-12) ergocalciferol (vitamin D2) 10 mcg 2,000 unit PO DAILY 08/21/13 11/18/22 History (400 unit) tablet furosemide 20 mg tablet 40 mg PO BID 08/21/13 11/18/22 History pramipexole 0.5 mg tablet 0.5 mg PO DAILY 08/21/13 12/27/21 History nystatin 100,000 unit/gram topical 1 applic topical BID #15 grams 09/02/22 Rx powder nystatin 100,000 unit/gram topical 1 applic topical BID #60 grams 09/02/22 Rx powder phentermine 15 mg capsule 1 cap PO DAILY 09/02/22 11/18/22 History ropinirole 4 mg tablet 1 tab PO DAILY 09/02/22 11/18/22 History cholecalciferol (vitamin D3) 25 50 mcg PO DAILY 12/17/22 History mcg (1,000 unit) capsule ketoconazole 2 % topical cream 1 applic topical BID 12/17/22 History metformin 500 mg tablet 1,000 mg PO DAILY 12/17/22 History ropinirole 4 mg tablet 4 mg PO DAILY 12/17/22 History METHODS: A 21 channel digitized electroencephalogram was performed in the [facility] Clinical Neurophysiology Laboratory. The 10/20 international system of electrode placement was used and bipolar and referential electrode montages were recorded. In addition to EEG the patient was monitored for EKG and lateral/vertical eye movements. Activation procedures of photic stimulation and hyperventilation were performed if applicable. Video was used during activation procedures and during events where applicable. The duration of the recording was 30 minutes. DESCRIPTION OF EEG: The patient was noted to be awake and drowsy during the recording. During maximal wakefulness a 10-Hz posterior background rhythm was present which was well-modulated, symmetrical, reactive to eye opening, and of moderate voltage. With eye opening the background activity changed to a low voltage mixture of alpha, beta, and occasional theta range frequencies. Faster frequencies were present in the bilateral anterior head regions. There was a normal anterior-posterior voltage gradient. During drowsiness, there was attenuation of the posterior dominant background rhythm and vertex waves. No stage II sleep was recorded. There were periods of brief generalized theta activity. There was a single T3 sharp, that was not clearly epileptic. ~20 episodes of yawning captured without any associated EEG changes or abnormalities. Activating Procedures: Photic stimulation was performed which produced a symmetrical posterior driving response at various flash frequencies. Hyperventilation was not performed. EKG: EKG revealed normal sinus rhythm/sinus bradycardia. INTERPRETATION: This EEG is normal during the awake state as well as during photic stimulation. Multiple episodes of yawning captured without any associated EEG abnormalities. PRIOR EEG: none CLINICAL CORRELATION: No focal regions of cerebral dysfunction or epileptiform activity was present. Epilepsy remains a clinical diagnosis and a normal EEG does not rule out epilepsy. Clinical correlation is advised. Judi Beltrán MD
== END 2022-12-20 02:57 | disposition home or self-care (01) ==
LOC: RT 02:56
PROVIDERS: PCP Family Medicine; Visit Provider Family Medicine
DX: R56.9 Unspecified convulsions (principal)
CPT/HCPCS: 95816

== ENCOUNTER 2023-01-11 03:44 | Outpatient (CLI) | payer OTHER, SELFPAY ==
[2023-01-11 10:14] LABS: BE 5 mmol/L (-2-3); HCO3 27 mmol/L (22-26); pCO2 29 mmHg (35-45); pH 7.57 (7.35-7.45); pO2 98 mmHg (80-105); sO2 98 % (95-98); tCO2 23 mmol/L (23-27)
[2023-01-11 10:16] LABS: FIO2L ROOM AIR L; Site Left Radial
== END 2023-01-11 03:45 | disposition home or self-care (01) ==
LOC: RT 03:45
PROVIDERS: PCP Family Medicine; Visit Provider Student in an Organized Health Care Education/Training Program
DX: F45.8 Other somatoform disorders (principal)
CPT/HCPCS: 82805

== ENCOUNTER 2023-01-11 03:45 | Outpatient (CLI) | payer OTHER, SELFPAY ==
[2023-01-11] MEDS: Inhaler, Assist Device 1 EACH MC (11:14)
[2023-01-11] MEDS: Albuterol HFA 18 GM 200 PUFF INH IH (11:14)
--- NOTE | 2023-01-14 09:20 | W.PFT ---
Date of service: 01/11/23 Time of Service: 10:13 Pulmonary Function Test Result Indications: Hyperventilation syndrome Interpretation Spirometry: There is no airflow limitation. There is no significant bronchodilator response Lung Volumes: Normal lung volumes Diffusion Capacity: Normal diffusion Airway Pressure: Normal airways resistance Impression Normal pulmonary function testing Clinical Correlation therefore is recommended.
== END 2023-01-11 03:46 | disposition home or self-care (01) ==
LOC: RT 03:45
PROVIDERS: PCP Family Medicine; Visit Provider Student in an Organized Health Care Education/Training Program
DX: F45.8 Other somatoform disorders (principal)
CPT/HCPCS: 94060; 94726; 94729; 36600

== ENCOUNTER 2023-02-20 10:45 | Outpatient (REF) | payer OTHER, SELFPAY ==
[2023-02-20 16:21] LABS: Anion Gap 6.3 mmol/L (3-11); BUN 16 mg/dL (7-18); CO2 29.7 mmol/L (21.0-32.0); CREATININE 0.9 mg/dL (0.55-1.02); Calcium 8.8 mg/dL (8.5-10.1); Chloride 104 mmol/L (98-107); Glucose 80 mg/dL (74-106); NT-proBNP 15 pg/mL (<300); Potassium 4.3 mmol/L (3.5-5.1); Sodium 140 mmol/L (136-145)
== END 2023-02-20 10:46 | disposition home or self-care (01) ==
LOC: NCHCN 10:45
PROVIDERS: PCP Family Medicine; Visit Provider Family Medicine
DX: R60.0 Localized edema (principal); R06.09 Other forms of dyspnea
CPT/HCPCS: 80048; 83880

== ENCOUNTER 2023-03-26 01:43 | Outpatient (CLI) | payer OTHER, SELFPAY ==
--- NOTE | 2023-03-26 06:45 | DI.US_ITS ---
APPROVED REPORT EXAM: Comprehensive 2D, Doppler, and color-flow Echocardiogram Patient Location: Out-Patient Cotton Puller: Ariel Gallego RDMS, RVT Indications: assess LVEF - prior mildly decreased Other Information Study Quality: Fair. Technically limited study due to body habitus. Conclusion Normal left ventricular wall thickness and chamber size. Estimated ejection fraction is 50 to 55%. No segmental wall motion abnormalities are identified Normal right ventricular size and systolic function Both atria are normal in size There are no structural or hemodynamically significant valvular abnormalities Mildly dilated ascending aorta measuring 3.53 cm Ventricular systolic pressure could not be estimated Wall motion Left Ventricle The left ventricle is grossly normal size. Not well visualized due to body habitus. Left ventricular systolic function is borderline. Not well visualized due to body habitus. There are no segmental wall motion abnormalities There is no ventricular septal defect visualized. LVEF is 50-55%. Right Ventricle Right ventricle is grossly normal in size. Right ventricular systolic function is grossly normal. Alissa ble to assess PA pressure. Atria The left atrium size is normal. The right atrium size is normal. The interatrial septum is intact wit h no evidence for an atrial septal defect. Aortic Valve The aortic valve is normal in structure. Number of aortic valve leaflets could not be assessed. There is no aortic valvular stenosis. No aortic regurgitation is present. Mitral Valve The mitral valve is normal in structure. No evidence of mitral valve stenosis. Trace mitral regurgita tion. Tricuspid Valve The tricuspid valve is normal in structure. There is no tricuspid valve stenosis. Trace tricuspid reg urgitation. Pulmonic Valve Pulmonic valve is not well visualized. There is no pulmonic valvular stenosis. There is no pulmonic v alvular regurgitation. Great Vessels The aortic root is normal in size. The ascending aorta is mildly dilated. Aortic arch is normal in ca liber. IVC is normal in size and collapses >50% with inspiration. Pericardium There is no pericardial effusion. 2D Dimensions Ao Root d 3.04 cm F: 2.7 - 3.3 LV Vol A2C d MOD 45.4 mL Ao Asc Diam d 3.53 cm F: 2.3 - 3.1 LV Vol A4C d MOD 89.6 mL LVEF (Campos's) 40.76 % F: 54 - 74 LA vol/ BSA A4C s A-L 33.2 mL/m2 LV Volume 53.25 mL F: 46 - 106 LA Area A4C s MOD 20.35 cm2 LV Volume Index 27.16 mL/m2 F: 29 - 61 LV EF A4C MOD 42.0 % LV Vol Biplane MOD 70.5 mL LV EF A2C MOD 42.2 % LV EF Biplane MOD 40.8 % SV 28.73 mL SV Index 14.67 mL/m2 M-Mode TAPSE 1.67 cm (M/F) >1.7 LV Diastology MV E' medial 0.123 (>0.07 m/s) E/A Ratio 1.0 LV E/e MED 7.35 (<14) MV E Vmax 0.91 (0.4-1.3 m/s) MV E' lateral 0.114 (>0.1 m/s) MV A Vmax 0.95 (0.4-1.3 m/s) LV E/e LAT 8.00 (<14) MV E/A Ratio 0.95 MV E/E' medial 7.37 MV E/E' lateral 8.00 Aortic Valve LVOT Area 3.12 cm2 AoV Area Vmax 2.55 cm2 LVOT Vmax 0.92 m/s AoV Area/ BSA (Vmax) 1.30 cm2/m2 LVOT Mean Kevin. 0.61 m/s BUFFY Mean Kevin. 2.44 cm2 LVOT Peak Grad 3.4 mmHg BUFFY Mean Kevin. Index 1.24 cm2/m2 LVOT Mean Grad 1.8 mmHg LVOT VTI 0.174 m LVOT Diam s 1.95 cm AoV Vmax 1.13 m/s Velocity Ratio 0.81 AoV Mean Kevin. 0.78 m/s AoV Peak Grad 5.1 mmHg LVOT SV 54.32 mL AoV Mean Grad 2.8 mmHg AoV VTI 0.244 m AoV Area VTI 2.22 cm2 AoV Area/ BSA (VTI) 1.14 cm/m2 Mitral Valve MV DT 190 (160-240 msec) MV PHT 55 msec MV Area PHT 4.00 cm2 MV VTI 0.362 m MV Area VTI 1.50 (4.0-6.0 cm2) Pulmonary Valve PV Vmax 0.80 (0.5-1.5 m/s) RVOT Peak Gr. 0.75 mmHg PV Peak Grad 2.6 mmHg RVOT Mean Gr. 0.55 mmHg PV Mean Grad 1.4 mmHg RVOT VTI 0.121 m PV VTI 0.168 m RVOT Vmax 0.43 m/s Tricuspid Valve RA Pressure 3.00 mmHg
== END 2023-03-26 02:03 ==
LOC: DI 01:43
PROVIDERS: PCP Family Medicine; Visit Provider Student in an Organized Health Care Education/Training Program
DX: I50.9 Heart failure, unspecified (principal)
CPT/HCPCS: 93306

== ENCOUNTER 2023-05-07 16:35 | Emergency (ER) | payer OTHER, SELFPAY ==
[2023-05-07 16:40] VITALS: BP 124/53; PULSE 61; RESP 18; TEMP 37; O2SAT 95
--- NOTE | 2023-05-07 16:59 | W.ED.GENAD ---
Discharge Plan Disposition Patient Disposition: Home Condition: Good Discharge Details Chief Complaint: Abd Prob Clinical Impression: Diarrhea Primary Care Provider: Martha Nixon ED Provider: James Yuen Home Meds and New Rx's Prescriptions: No Action ketoconazole 2 % cream 1 applic topical BID ropinirole 4 mg tablet 4 mg PO DAILY metformin 500 mg tablet 1,000 mg PO DAILY cholecalciferol (vitamin D3) 25 mcg (1,000 unit) capsule 50 mcg PO DAILY Patient Comments: does not take nystatin 100,000 unit/gram powder 1 applic topical BID Qty: 15 6RF escitalopram oxalate 10 mg tablet 10 mg PO DAILY Qty: 90 3RF ergocalciferol (vitamin D2) 400 UNIT tablet 2,000 unit PO DAILY Patient Comments: pt states she just takes 1 tab 2000 units cyanocobalamin (vitamin B-12) [Vitamin B-12] 1,000 MCG tablet 1,000 mcg PO DAILY colesevelam [WelChol] 625 MG tablet 625 mg PO BID furosemide 20 MG tablet 40 mg PO BID spironolactone 25 mg tablet 25 mg PO DAILY Discharge Instructions Instructions: Acute Diarrhea (ED) Additional Instructions: At this time your electrolytes are normal, and your CAT scan shows no evidence of significant abnormality. We are still waiting on some of the stool studies to return. In the meantime, please take Pepto-Bismol as needed. If your stool studies returned concerning for an infectious etiology you will be contacted for treatment. If you notice any worsening of your symptoms, or any new symptoms such as vomiting, diarrhea, fever, chills, shortness of breath, chest pain, numbness, weakness, or fainting , please return immediately to the emergency department for reevaluation. Please follow up with your primary care provider as soon as possible for reassessment and reevaluation. As always, it was a pleasure participating in your medical care today. Referrals: Martha Nixon MD [Primary Care Provider] - Medical Decision Making 67-year-old female with a past medical history of hearing loss, recent echo on 03/26/2023 that showed an ejection fraction around 55%, who presents today for evaluation of diarrhea. Patient states that for the last 4 days she has had 20 episodes of liquid bowel movements each day. They recently just got back from vacation in [place], and she felt that her symptoms came up shortly after going to a restaurant/[employer] down in [place]. She admits to mild cramping sensation in her abdomen. She denies any vomiting. No blood in her stools. No other complaints at this time. Physical exam demonstrates dry mucous membranes, mild abdominal crampiness. We will do stool cultures, get a CT scan to rule out diverticulitis, check for electrolyte abnormalities, monitor closely and reassess. 7:31 PM Laboratory work-up demonstrates normal work-up, electrolytes normal. Renal function stable, lipase normal, C. difficile negative. CT scan was performed and shows no evidence of acute process per radiology. No other significant abnormality. Patient otherwise feels well. Patient was able to provide stool. C. difficile was negative. We are still waiting on the culture results from the others. We will wait for these to return. Otherwise patient looks well. She has been rehydrated here. Will recommend Pepto-Bismol at home, and then if the infectious cultures returned negative she can start antimotility agent and/or treatment if an infectious etiology is positive. Patient is otherwise stable and feels well. Discussed red flags for which return. I have extensively reviewed the treatment plan and discharge instructions with the patient. I have addressed all patient concerns at this time. The patient was made aware of what symptoms to monitor for that would warrant a return to the emergency department. Discussed the plan with the patient, they demonstrate verbal understanding and agreement with our assessment and plan at this time. The documentation in this chart was dictated using [employer] dictation software. Please excuse any dictation errors. FINDINGS: VISUALIZED LUNG BASES: No nodules nor pleural effusions evident. ABDOMEN: There is no ascites. LIVER: There are no focal hepatic lesions evident. No dilated intrahepatic ducts. GALLBLADDER/BILIARY: Gallbladder surgically absent. CBD diameter upper normal. PANCREAS: No evidence of pancreatic mass nor dilatation of the pancreatic duct. SPLEEN: Size is normal. There is a cyst in the medial subcapsular spleen measuring 1.1 cm. There also a few small calcified granulomas in the spleen. Splenic and portal veins are patent.. ADRENALS: There are no significant adrenal masses. KIDNEYS:Right kidney unremarkable. 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 No significant focal renal findings. No hydronephrosis. No hydroureter. Urinary bladder is partially collapsed. No radiopaque calculi therein.. ABDOMINAL AORTA: Abdominal aorta is not enlarged. LYMPH NODES:There is no retroperitoneal nor paraaortic adenopathy. ABDOMINAL WALL: No evidence of significant anterior abdominal wall nor inguinal hernia. GI: There is no evidence of bowel obstruction, free air, nor abscess. PELVIS: GI: No evidence of appendicitis.There is sigmoid diverticulosis. There is no obvious acute diverticulitis. No free fluid. LYMPH NODES: There is no intrapelvic nor inguinal adenopathy. REPRODUCTIVE: Uterus and adnexal regions appear age-appropriate. URINARY BLADDER: No calculi nor obvious masses evident OSSEOUS: No fractures and no significant osseous lesions. IMPRESSION: 1. Sigmoid diverticulosis without evidence of acute diverticulitis. No evidence of appendicitis. 2. Previous cholecystectomy. Biliary tree not significantly dilated. 3. Mild malrotation left kidney. No other significant renal findings. No hydronephrosis. Report called by myself to emergency room physician 05/07/2023 at 7:08 p.m. HPI General Date/Time Provider Initiated Documentation: 05/07/23 16:47. HPI Narrative: 67-year-old female with a past medical history of hearing loss, recent echo on 03/26/2023 that showed an ejection fraction around 55%, who presents today for evaluation of diarrhea. Patient states that for the last 4 days she has had 20 episodes of liquid bowel movements each day. They recently just got back from vacation in [place], and she felt that her symptoms came up shortly after going to a restaurant/[employer] down in [place]. She admits to mild cramping sensation in her abdomen. She denies any vomiting. No blood in her stools. No other complaints at this time. Related Data Home Medications Medication Instructions Recorded Confirmed colesevelam 625 mg tablet (WelChol) 625 mg PO BID 08/21/13 05/07/23 cyanocobalamin (vitamin B-12) 1,000 mcg PO DAILY 08/21/13 05/07/23 1,000 mcg tablet (Vitamin B-12) ergocalciferol (vitamin D2) 10 mcg 2,000 unit PO DAILY 08/21/13 05/07/23 (400 unit) tablet furosemide 20 mg tablet 40 mg PO BID 08/21/13 05/07/23 cholecalciferol (vitamin D3) 25 50 mcg PO DAILY 12/17/22 04/04/23 mcg (1,000 unit) capsule ketoconazole 2 % topical cream 1 applic topical BID 12/17/22 05/07/23 metformin 500 mg tablet 1,000 mg PO DAILY 12/17/22 05/07/23 ropinirole 4 mg tablet 4 mg PO DAILY 12/17/22 05/07/23 nystatin 100,000 unit/gram topical 1 applic topical BID #15 grams 04/04/23 05/07/23 powder escitalopram oxalate 10 mg tablet 10 mg PO DAILY #90 tabs 04/29/23 05/07/23 spironolactone 25 mg tablet 25 mg PO DAILY 05/07/23 05/07/23 Previous Rx's Medication Instructions Recorded nystatin 100,000 unit/gram topical 1 applic topical BID #15 grams 04/04/23 powder escitalopram oxalate 10 mg tablet 10 mg PO DAILY #90 tabs 04/29/23 Allergies Allergy/AdvReac Type Severity Reaction Status Date / Time No Known Allergies Allergy Verified 05/07/23 16:43 General Stated Complaint: Abd Prob YENNY: 3 Review of Systems All systems reviewed & are unremarkable except as noted in HPI and below PFSH All Active Problems (Updated 05/07/23 @ 19:35 by James Yeun DO) Diarrhea (Acute) Heart failure (Acute) Hyperventilation syndrome (Acute) Sensorineural hearing loss of both ears (Acute) Greater trochanteric bursitis of both hips (Acute) Osteoarthritis of left knee (Acute) Iliotibial band tendinitis of left side (Acute) Medical History Chronic diarrhea Chronic lower back pain Decreased hearing Edema Endometrial polyp Facial skin lesion GERD (gastroesophageal reflux disease) History of IBS History of prediabetes HTN (hypertension) Hx of hyperlipidemia Insomnia Knee pain, left MRSA infection Obesity CAMACHO on CPAP Restless leg syndrome Thoracic back pain Trochanteric bursitis of left hip Vitamin B12 deficiency (non anemic) Surgical History H/O section History of bunionectomy History of tonsillectomy Hx of cholecystectomy Family History Father Heart disease Mother Heart disease Social History Smoking/Tobacco Use Status: Never Smoking risk assessment performed?: Yes Alcohol Intake: current Alcohol Intake frequency: holidays/special occasions only Drug use: Never Substance use type: does not use Household members: spouse Number of Children: 3 current occupation: Retired Current gender identity: female Do you feel safe at home: Yes Do you feel safe in your relationship?: Yes Exam Narrative Exam Narrative: 1.Const: Well-nourished, Well-developed, appearing stated age 2.Eyes: PERRL, no conjunctival injection, and symmetrical lids. 3.ENT: Atraumatic external nose and ears. Notably dry MM. Neck: Symmetric, trachea midline, No thyromegaly. 4.CVS: +S1/S2, No murmurs or gallops. Peripheral pulses 2+ and equal in all extremities. Brisk capillary refill in all extremities. 5.RESP: Unlabored respiratory effort. Clear to auscultation bilaterally. No wheezes rales or rhonchi 6.GI: Soft, Nontender/Nondistended, No hepatosplenomegaly. No guarding or rebound. Mild crampiness on palpation of the abdomen 7.MSK: Normocephalic/Atraumatic, Extremities w/o deformity or ttp No cyanosis or clubbing, Normal movement of all extremities 8.Skin: Warm, Dry. No rashes or lesions. 9.Neuro: art conservator II-XII grossly intact. Sensation grossly intact, no focal neurologic deficits. 10.Psych: (AAO) x3. Appropriate mood and affect Course Vital Signs Vital signs: Vital Signs Temperature 37.0 C 05/07/23 16:40 Pulse 61 05/07/23 16:40 Respiratory Rate 18 05/07/23 16:40 Blood Pressure 124/53 L 05/07/23 16:40 Pulse Oximetry 95 05/07/23 16:40 Temperature 37.0 C 05/07/23 16:40 Temperature Source Temporal Artery Scan 05/07/23 16:40 Pulse 61 05/07/23 16:40 Respiratory Rate 18 05/07/23 16:40 Respiratory Effort Normal, Non-Labored 05/07/23 16:46 Blood Pressure 124/53 L 05/07/23 16:40 Blood Pressure Position Sitting 05/07/23 16:40 Pulse Oximetry 95 05/07/23 16:40 Oxygen Delivery Method Room Air 05/07/23 16:40 Oxygen Flow Rate 0 05/07/23 16:40 PAWSS Have you Been Recently Intoxicated or Drunk Within the Last 30 days?: No Have you Ever Experienced Previous Episodes of Alcohol Withdrawal?: No Have you ever Experienced Withdrawal Seizures?: No Have you ever Experienced Delirium Tremens(DT)s?: No Have you ever undergone Alcohol Rehabilitation Treatment (i.e, inpt ot outpatient treatment programs)?: No Have you ever Experienced Blackouts?: No Have you ever Combined Alcohol with other Downers within the last 90 days?: No Have you ever Combined Alcohol with any other Substance of Abuse during the last 90 days?: No Positive Blood Alcohol level on Presentation? [PCS.BAL]: No Evidence of Increased Autonomic Activity (i.e. HR>120, tremor, sweating, agitation, nausea)?: No Result: 0
[2023-05-07] MEDS: Normal Saline 1,000 ML 1000 ML IV (17:10)
[2023-05-07 17:12] LABS: Abs Immature Grans 0.01 10^3/uL (0.0-0.06); Absolute Basophil Count 0.01 10^3/uL (0.0-0.2); Absolute Lymphocyte Count 1.97 10^3/uL (1.2-3.4); Absolute Monocyte Count 0.74 10^3/uL (0.1-0.8); Absolute Neutrophil Count 2.67 10^3/uL (1.2-6.7); Basophils % 0.2; Eosinophils % 1.8; HCT 42.4 % (36.0-46.0); HGB 14.3 g/dL (11.2-15.7); Immature Grans % 0.2; Lymphocytes % 35.8; MCH 31.8 pg (27.0-33.0); MCHC 33.7 % (32.0-36.0); MCV 94 fL (80-95); MPV 8.2 fL (8.0-11.0); Monocytes % 13.5; Neutrophils % 48.5; Platelet Count 188 10^3/uL (130-400); RDW 13.3 % (11.7-14.6); RDW-SD 46.5 fL
[2023-05-07 17:28] LABS: ALT 31 U/L (14-59); AST 26 U/L (15-37); Albumin 3.8 g/dL (3.4-5.0); Alkaline Phosphatase 73 U/L (46-116); Anion Gap 8.3 mmol/L (3-11); BUN 12 mg/dL (7-18); Bilirubin, Total 0.5 mg/dL (0.2-1.0); CO2 29.7 mmol/L (21.0-32.0); CREATININE 1.1 mg/dL (0.55-1.02); Calcium 8.4 mg/dL (8.5-10.1); Chloride 103 mmol/L (98-107); Estimated GFR 54.39 (mL/min/1.73m2); Glucose 96 mg/dL (74-106); Lipase 33 U/L (16-77); Potassium 3.4 mmol/L (3.5-5.1); Sodium 141 mmol/L (136-145); Total Protein 7.5 g/dL (6.4-8.2)
--- NOTE | 2023-05-07 18:00 | DI.CT_ITS ---
Exam(s) CT ABDOMEN PELVIS W EXAM: CT ABDOMEN PELVIS W CLINICAL HISTORY: diarrhea, abdominal pain, r/o colitis. TECHNIQUE: Imaging Protocol: Axial computed tomography images with coronal and sagittal reformatted images were created and reviewed CONTRAST MATERIAL: Intravenous: Omnipaque-350 100cc Oral: None COMPARISON: Prior CT scan 11/18/2022 FINDINGS: VISUALIZED LUNG BASES: No nodules nor pleural effusions evident. ABDOMEN: There is no ascites. LIVER: There are no focal hepatic lesions evident. No dilated intrahepatic ducts. GALLBLADDER/BILIARY: Gallbladder surgically absent. CBD diameter upper normal. PANCREAS: No evidence of pancreatic mass nor dilatation of the pancreatic duct. SPLEEN: Size is normal. There is a cyst in the medial subcapsular spleen measuring 1.1 cm. There al so a few small calcified granulomas in the spleen. Splenic and portal veins are patent.. ADRENALS: There are no significant adrenal masses. KIDNEYS:Right kidney unremarkable. 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 No significant focal renal findings. No hydronephrosis. No hydroureter. Urinary bladder is parti ally collapsed. No radiopaque calculi therein.. ABDOMINAL AORTA: Abdominal aorta is not enlarged. LYMPH NODES:There is no retroperitoneal nor paraaortic adenopathy. ABDOMINAL WALL: No evidence of significant anterior abdominal wall nor inguinal hernia. GI: There is no evidence of bowel obstruction, free air, nor abscess. PELVIS: GI: No evidence of appendicitis.There is sigmoid diverticulosis. There is no obvious acute diverticu litis. No free fluid. LYMPH NODES: There is no intrapelvic nor inguinal adenopathy. REPRODUCTIVE: Uterus and adnexal regions appear age-appropriate. URINARY BLADDER: No calculi nor obvious masses evident OSSEOUS: No fractures and no significant osseous lesions. IMPRESSION: 1. Sigmoid diverticulosis without evidence of acute diverticulitis. No evidence of appendicitis. 2. Previous cholecystectomy. Biliary tree not significantly dilated. 3. Mild malrotation left kidney. No other significant renal findings. No hydronephrosis. Report called by myself to emergency room physician 05/07/2023 at 7:08 p.m. RADIATION DOSE DELIVERED: Total DLP DATA REPOSITORY: All CT scans at this facility are submitted to the National Radiology Data Registry (NRDR) Dose Index Registry (DIR) with the [employer] (A[employer]). RADIATION OPTIMIZATION: All CT scans at this facility use at least one of these dose optimization te chniques: automated exposure control; mA and/or kV adjustment per patient size (includes targeted exa ms where dose is matched to clinical indication); or iterative reconstruction.
[2023-05-07] MEDS: Omnipaque 350 MG/ML 100 ML BTL IJ (18:42)
[2023-05-07] MEDS: Normal Saline Flush 10 ML SYR IVP (18:43)
[2023-05-07] MEDS: Normal Saline - Diluent 50 ML VIAL IV (18:43)
[2023-05-07 19:04] LABS: C Diff PCR Negative (Negative)
[2023-05-07 19:40] VITALS: BP 114/65; PULSE 59; RESP 18; TEMP 37.4; O2SAT 94
[2023-05-09 00:02] LABS: Campylobacter PCR Negative (Negative); Salmonella PCR Negative (Negative); Shiga Toxin PCR Negative (Negative); Shigella/Enteroinvasive Ecoli Negative (Negative)
== END 2023-05-07 20:29 | disposition home or self-care (01) ==
PROVIDERS: Emergency Provider Student in an Organized Health Care Education/Training Program; PCP Family Medicine
DX: R10.9 Unspecified abdominal pain (principal); R19.7 Diarrhea, unspecified; Q63.2 Ectopic kidney; I10 Essential (primary) hypertension; E78.5 Hyperlipidemia, unspecified; Z90.49 Acquired absence of other specified parts of digestive tract
CPT/HCPCS: 36415; 80053; 83690; 87329; 87493; 87505; 96360; 99285; 74177; 83735; 85025; 87177; 99284; J3490

== ENCOUNTER 2023-06-05 00:46 | Emergency (ER) | payer OTHER, SELFPAY ==
[2023-06-05 00:52] VITALS: BP 107/56; PULSE 78; RESP 16; TEMP 36.6; O2SAT 93
--- NOTE | 2023-06-05 01:05 | W.ED.GENAD ---
Discharge Plan Disposition Patient Disposition: Home Discharge Details Clinical Impression: Diarrhea, Hypokalemia Primary Care Provider: Martha Nixon ED Provider: James Yuen Home Meds and New Rx's Prescriptions: New diphenoxylate-atropine [Lomotil] 2.5-0.025 mg tablet 1 tab PO DAILY Qty: 10 0RF potassium chloride 20 mEq/15 mL liquid 20 meq PO DAILY 7 Days Qty: 105 0RF No Action ketoconazole 2 % cream 1 applic topical BID ropinirole 4 mg tablet 4 mg PO DAILY metformin 500 mg tablet 1,000 mg PO DAILY cholecalciferol (vitamin D3) 25 mcg (1,000 unit) capsule 50 mcg PO DAILY Patient Comments: does not take nystatin 100,000 unit/gram powder 1 applic topical BID Qty: 15 6RF escitalopram oxalate 10 mg tablet 10 mg PO DAILY Qty: 90 3RF sertraline 25 mg tablet 25 mg PO DAILY Qty: 30 5RF ergocalciferol (vitamin D2) 400 UNIT tablet 2,000 unit PO DAILY Patient Comments: pt states she just takes 1 tab 2000 units cyanocobalamin (vitamin B-12) [Vitamin B-12] 1,000 MCG tablet 1,000 mcg PO DAILY colesevelam [WelChol] 625 MG tablet 625 mg PO BID furosemide 20 MG tablet 40 mg PO BID spironolactone 25 mg tablet 25 mg PO DAILY Discharge Instructions Instructions: Acute Diarrhea (ED) Additional Instructions: Please follow-up closely with the surgeon. We have placed a referral for recommendations for outpatient colonoscopy. Please take your Lomotil prescription to the pharmacy and have it filled to help with the diarrhea. 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 Your potassium was slightly low here. If you notice any worsening of your symptoms, or any new symptoms such as vomiting, diarrhea, fever, chills, shortness of breath, chest pain, numbness, weakness, or fainting , please return immediately to the emergency department for reevaluation. Please follow up with your primary care provider as soon as possible for reassessment and reevaluation. As always, it was a pleasure participating in your medical care today. Referrals: Martha Nixon MD [Primary Care Provider] - Medical Decision Making 68-year-old female with a past medical history of heart failure, and persistent diarrhea. She was seen about a month ago by myself, at that time she had notable diarrhea, 10-20 episodes per day. There is recommended that she start a probiotic, avoid spicy and greasy foods. Over the next month her results came back, Giardia, Cryptosporidium, C. difficile, and stool cultures were all negative. Stooling improved on its own over time, but would seem to come and go occasionally based on potential diet of high meat and fatty foods. She denies any abdominal pain or epigastric pain or right upper quadrant pain. Unfortunately tonight her symptoms notably returned. She has had 30 episodes of diarrhea today already. She did have broth, steak sandwich, pulled pork, and just a day or so ago when out to eat at a restaurant in [place]. She otherwise denies any antibiotic use or other complaints. No other modifying factors. No blood in her stools. No vomiting. Exam demonstrates slightly dry mucous membranes, nontender abdomen. Suspect irritable bowel syndrome for the cause of her persistent diarrhea. Knowing that the work-up and testing was negative, I do have more reassurance about providing Lomotil now. We will give Lomotil, rehydrate, evaluate for electrolyte abnormality, and recommend outpatient surgical referral for colonoscopy. 2:59 AM Laboratory work-up is returned relatively stable. Potassium slightly low. We will put a prescription in for liquid potassium for the patient. Patient has had no more bowel movements while here in the emergency department. She feels much better. Diarrhea has resolved after the Lomotil. Patient is stable for discharge. Will place referral on an outpatient basis for surgery referral for colonoscopy. Otherwise patient looks well and symptoms appear inconsistent with toxic megacolon, or life-threatening infectious diarrhea. Discussed red flags for which to return. I have extensively reviewed the treatment plan and discharge instructions with the patient. I have addressed all patient concerns at this time. The patient was made aware of what symptoms to monitor for that would warrant a return to the emergency department. Discussed the plan with the patient, they demonstrate verbal understanding and agreement with our assessment and plan at this time. The documentation in this chart was dictated using [employer] dictation software. Please excuse any dictation errors. HPI General Date/Time Provider Initiated Documentation: 06/05/23 00:54. HPI Narrative: 68-year-old female with a past medical history of heart failure, and persistent diarrhea. She was seen about a month ago by myself, at that time she had notable diarrhea, 10-20 episodes per day. There is recommended that she start a probiotic, avoid spicy and greasy foods. Over the next month her results came back, Giardia, Cryptosporidium, C. difficile, and stool cultures were all negative. Stooling improved on its own over time, but would seem to come and go occasionally based on potential diet of high meat and fatty foods. She denies any abdominal pain or epigastric pain or right upper quadrant pain. Unfortunately tonight her symptoms notably returned. She has had 30 episodes of diarrhea today already. She did have broth, steak sandwich, pulled pork, and just a day or so ago when out to eat at a restaurant in [place]. She otherwise denies any antibiotic use or other complaints. No other modifying factors. No blood in her stools. No vomiting. Related Data Home Medications Medication Instructions Recorded Confirmed colesevelam 625 mg tablet (WelChol) 625 mg PO BID 08/21/13 06/05/23 cyanocobalamin (vitamin B-12) 1,000 mcg PO DAILY 08/21/13 06/05/23 1,000 mcg tablet (Vitamin B-12) ergocalciferol (vitamin D2) 10 mcg 2,000 unit PO DAILY 08/21/13 05/07/23 (400 unit) tablet furosemide 20 mg tablet 40 mg PO BID 08/21/13 06/05/23 cholecalciferol (vitamin D3) 25 50 mcg PO DAILY 12/17/22 06/05/23 mcg (1,000 unit) capsule ketoconazole 2 % topical cream 1 applic topical BID 12/17/22 05/07/23 metformin 500 mg tablet 1,000 mg PO DAILY 12/17/22 05/07/23 ropinirole 4 mg tablet 4 mg PO DAILY 12/17/22 06/05/23 nystatin 100,000 unit/gram topical 1 applic topical BID #15 grams 04/04/23 05/07/23 powder escitalopram oxalate 10 mg tablet 10 mg PO DAILY #90 tabs 04/29/23 05/07/23 spironolactone 25 mg tablet 25 mg PO DAILY 05/07/23 05/07/23 sertraline 25 mg tablet 25 mg PO DAILY #30 tabs 05/24/23 06/05/23 diphenoxylate-atropine 2.5 1 tab PO DAILY #10 tabs 06/05/23 mg-0.025 mg tablet (Lomotil) potassium chloride 20 mEq/15 mL 20 meq (15 mL) PO DAILY 7 days 06/05/23 oral liquid #105 mL Previous Rx's Medication Instructions Recorded nystatin 100,000 unit/gram topical 1 applic topical BID #15 grams 04/04/23 powder escitalopram oxalate 10 mg tablet 10 mg PO DAILY #90 tabs 04/29/23 sertraline 25 mg tablet 25 mg PO DAILY #30 tabs 05/24/23 diphenoxylate-atropine 2.5 1 tab PO DAILY #10 tabs 06/05/23 mg-0.025 mg tablet (Lomotil) potassium chloride 20 mEq/15 mL 20 meq (15 mL) PO DAILY 7 days 06/05/23 oral liquid #105 mL Allergies Allergy/AdvReac Type Severity Reaction Status Date / Time No Known Allergies Allergy Verified 06/05/23 01:35 General Stated Complaint: GenMedical YENNY: 4 Review of Systems All systems reviewed & are unremarkable except as noted in HPI and below PFSH All Active Problems (Updated 06/05/23 @ 03:03 by James Yuen DO) Diarrhea (Acute) Diarrhea (Acute) Hypokalemia (Acute) Heart failure (Acute) Hyperventilation syndrome (Acute) Sensorineural hearing loss of both ears (Acute) Greater trochanteric bursitis of both hips (Acute) Osteoarthritis of left knee (Acute) Iliotibial band tendinitis of left side (Acute) Medical History Chronic diarrhea Chronic lower back pain Decreased hearing Edema Endometrial polyp Facial skin lesion GERD (gastroesophageal reflux disease) History of IBS History of prediabetes HTN (hypertension) Hx of hyperlipidemia Insomnia Knee pain, left MRSA infection Obesity CAMACHO on CPAP Restless leg syndrome Thoracic back pain Trochanteric bursitis of left hip Vitamin B12 deficiency (non anemic) Surgical History H/O section History of bunionectomy History of tonsillectomy Hx of cholecystectomy Family History Father Heart disease Mother Heart disease Social History Smoking/Tobacco Use Status: Never Smoking risk assessment performed?: Yes Alcohol Intake: current Alcohol Intake frequency: holidays/special occasions only Drug use: Never Substance use type: does not use Household members: spouse Housing: house Number of Children: 3 current occupation: Retired Current gender identity: female Do you feel safe at home: Yes Do you feel safe in your relationship?: Yes Exam Narrative Exam Narrative: 1.Const: Well-nourished, Well-developed, appearing stated age 2.Eyes: PERRL, no conjunctival injection, and symmetrical lids. 3.ENT: Atraumatic external nose and ears. Moist MM. Neck: Symmetric, trachea midline, No thyromegaly. 4.CVS: +S1/S2, No murmurs or gallops. Peripheral pulses 2+ and equal in all extremities. Brisk capillary refill in all extremities. 5.RESP: Unlabored respiratory effort. Clear to auscultation bilaterally. No wheezes rales or rhonchi 6.GI: Soft, Nontender/Nondistended, No hepatosplenomegaly. No guarding or rebound. 7.MSK: Normocephalic/Atraumatic, Extremities w/o deformity or ttp No cyanosis or clubbing, Normal movement of all extremities 8.Skin: Warm, Dry. No rashes or lesions. 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 Sensation grossly intact, no focal neurologic deficits. 10.Psych: (AAO) x3. Appropriate mood and affect Course Vital Signs Vital signs: Vital Signs Temperature 36.6 C 06/05/23 00:52 Pulse 78 06/05/23 00:52 Respiratory Rate 16 06/05/23 00:52 Blood Pressure 107/56 L 06/05/23 00:52 Pulse Oximetry 93 06/05/23 00:52 Temperature 36.6 C 06/05/23 00:52 Temperature Source Oral 06/05/23 00:52 Pulse 78 06/05/23 00:52 Respiratory Rate 16 06/05/23 00:52 Blood Pressure 107/56 L 06/05/23 00:52 Pulse Oximetry 93 06/05/23 00:52 Oxygen Delivery Method Room Air 06/05/23 00:52 Oxygen Flow Rate 0 06/05/23 00:52 Pain Level 0 06/05/23 00:52
[2023-06-05 01:19] LABS: Abs Immature Grans 0.03 10^3/uL (0.0-0.06); Absolute Basophil Count 0.03 10^3/uL (0.0-0.2); Absolute Lymphocyte Count 2.69 10^3/uL (1.2-3.4); Absolute Monocyte Count 0.71 10^3/uL (0.1-0.8); Absolute Neutrophil Count 6.01 10^3/uL (1.2-6.7); Basophils % 0.3; HGB 14.2 g/dL (11.2-15.7); Immature Grans % 0.3; Lymphocytes % 28.1; MCH 31.4 pg (27.0-33.0); MCV 95 fL (80-95); Monocytes % 7.4; Neutrophils % 62.9; Platelet Count 231 10^3/uL (130-400); RBC 4.52 10^6/uL (3.93-5.22); RDW 13.1 % (11.7-14.6); WBC 9.57 10^3/uL (4.4-10.8)
[2023-06-05] MEDS: Normal Saline 1,000 ML 1000 ML IV (01:27)
--- NOTE | 2023-06-05 01:28 | NUR.NOTE ---
Pt placed on care management referral list for surgery and colonoscopy to be seen within 1 week for persistent diarrhea per Dr. Yuen.
[2023-06-05 01:39] LABS: ALT 40 U/L (14-59); AST 18 U/L (15-37); Albumin 3.6 g/dL (3.4-5.0); Alkaline Phosphatase 130 U/L (46-116); Anion Gap 7.8 mmol/L (3-11); BUN 23 mg/dL (7-18); Bilirubin, Total 0.4 mg/dL (0.2-1.0); CO2 27.2 mmol/L (21.0-32.0); CREATININE 0.9 mg/dL (0.55-1.02); Calcium 8.2 mg/dL (8.5-10.1); Chloride 103 mmol/L (98-107); Estimated GFR 68.77 (mL/min/1.73m2); Glucose 105 mg/dL (74-106); Potassium 3.2 mmol/L (3.5-5.1); Sodium 138 mmol/L (136-145); Total Protein 7.1 g/dL (6.4-8.2)
== END 2023-06-05 03:47 | disposition home or self-care (01) ==
PROVIDERS: Emergency Provider Student in an Organized Health Care Education/Training Program; PCP Family Medicine
DX: R19.7 Diarrhea, unspecified (principal); E87.6 Hypokalemia; I50.9 Heart failure, unspecified
CPT/HCPCS: 80053; 96360; 99283; 85025; 99284

== ENCOUNTER 2023-06-27 07:25 | Day surgery (SDC) | payer OTHER, SELFPAY ==
--- NOTE | 2023-06-26 19:09 | W.PM.DSUDISC ---
Date of service: 06/27/23 Time of Service: 09:34 Discharge Plan Disposition Patient Disposition: Home Condition: Good Discharge Details Reason For Visit: Colonoscopy Attending Provider: Tin Herrera Primary Care Provider: Martha Nixon Home Meds and New Rx's Prescriptions: New psyllium Powder 1 tbsp PO DAILY Qty: 300 3RF Rx Instructions: mix into at least 8 oz of water or juice before administering Continued ketoconazole 2 % cream 1 applic topical BID ropinirole 4 mg tablet 4 mg PO DAILY cholecalciferol (vitamin D3) 25 mcg (1,000 unit) capsule 50 mcg PO DAILY Patient Comments: does not take nystatin 100,000 unit/gram powder 1 applic topical BID Qty: 15 6RF ergocalciferol (vitamin D2) 400 UNIT tablet 2,000 unit PO DAILY Patient Comments: pt states she just takes 1 tab 2000 units cyanocobalamin (vitamin B-12) [Vitamin B-12] 1,000 MCG tablet 1,000 mcg PO DAILY colesevelam [WelChol] 625 MG tablet 625 mg PO BID furosemide 20 MG tablet 40 mg PO BID diphenoxylate-atropine [Lomotil] 2.5-0.025 mg tablet 1 tab PO DAILY Qty: 30 2RF Discontinued bisacodyl [Dulcolax (bisacodyl)] 5 mg tablet,delayed release (DR/EC) 5 mg PO ONCE Qty: 4 0RF Rx Instructions: Take as directed for your colonoscopy Discharge Instructions Instructions: Diverticulosis (GEN) Additional Instructions: uRby, we were able to do your colonoscopy today without any difficulty at all. The quality of your prep was excellent. The lining of your large intestine all looks normal. I do not see any active signs of inflammation. In that regards, this does not seem consistent with Crohn's disease or ulcerative colitis. Like we talked about before the procedure, I did do some biopsies all along the length of the large intestine in order to evaluate for microcytic colitis we will take a week or 2 for me to get those results. In the meantime, I think you should resume your Lomotil. I have also added a prescription for psyllium. You should take 1 tablespoon mixed with 8 ounces of water every morning. If you find that this starts to help, the dose can be increased to 3 times a day if needed. We have made an appointment for you on July 10 at 11:45 in the morning. 1. If tolerated, consume a soft, low fiber diet for 1-2 days. 2[address] Do not drive, drink alcohol, operate machinery, make critical decisions, or do activities that require coordination or balance for 24 hours. 3. Because air was put into your colon during the procedure, expelling air from your rectum (passing gas or farting) is normal. 4. You may not have a bowel movement for 1-3 days because of the colonoscopy prep. This is normal. 5. Go directly to the emergency room if you notice any of the following: Develop chills (warm to touch), or if you have a thermometer and your temperature is above 101 Difficulty breathing or difficultly swallowing Persistent vomiting Severe abdominal pain, other than gas cramps Severe chest pain Black, tarry stools Any bleeding ? exceeding one tablespoon 6. Call your physician if the site where your intravenous was started becomes red, swollen, painful, and warm to touch. 7. Your physician has reviewed your pre-procedure medications. Please continue to take those medications as previously ordered. You will be given specific information/education regarding any changes to your medications before leaving. Activity:: Activity as Tolerated Diet:: As Tolerated Discharge Orders Discharge Orders: Discharge Order (Routine); Ordered 06/26/23 Ordered By: Tin Herrera DS: Diagnosis Discharge Diagnosis (1) Diarrhea: Status: Acute Asessment and Plan: Follow-up on biopsy results
--- NOTE | 2023-06-26 20:07 | W.COLOREPORT ---
Date of service: 06/27/23 Time of Service: 09:38 Colonoscopy Report Date of procedure: 06/27/23 Pre-op diagnosis general: Diarrhea Post-op diagnosis procedure note: other (Diverticulosis) Procedure: Colonoscopy with random mucosal biopsies Surgeon: iTn Herrera Anesthesia Type: General:No Airway Estimated blood loss (mL): 15 Pathology: other (Random biopsies of the cecum, ascending, transverse, descending, and sigmoid colons. Random biopsies of the rectum. All specimens were sent together) Complications: None Disposition: same day Indications: Ruby is a 68 year old woman with chronic diarrhea Prep: Miralax/Dulcolax Procedure Start Time: :02 Procedure End Time: : Retraction Time: 10 Findings: Diverticulosis with otherwise normal-appearing colonic mucosa Procedure Description: After the induction of monitored anesthetic care, and with the patient in left lateral decubitus position, I began by performing an external anorectal exam.? There was a mild amount of erythema around the anus but I suspect is secondary to the bowel prep. Otherwise things appeared normal.? There was no evidence of external hemorrhoids.? Next, I performed a digital rectal exam.? I did not appreciate any abnormal findings.? Next, I advanced a colonoscope into the rectal vault.? I performed retroflexion.? This appeared normal.? Using insufflation, I then advanced the colonoscope beyond the rectal folds and into the sigmoid colon before advancing towards the cecum.? The mucosa of the rectum appeared totally normal. There is no inflammation or friability. There were no masses. The quality of the prep was adequate.? The scope was noted to be in the cecum by identification of the ileocecal valve.? Perform random biopsies of the cecum with cold forceps. There was minimal bleeding. I then began withdrawing the colonoscope using repeated irrigation as necessary for full evaluation of the colonic mucosa. ?Once the scope was withdrawn to the level of the rectum, great care was taken to examine portions of the rectal folds.? All of the mucosa of the large intestine appeared normal. I did perform random biopsies all along the length of the colon to rule out microcytic colitis. Finally, the scope was withdrawn and the patient was brought to the same-day surgery recovery unit as the anesthetic wore off. ?The findings and instructions were shared with the patient prior to discharge.
[2023-06-27 07:52] VITALS: BP 117/56; PULSE 50; RESP 16; TEMP 36.6; O2SAT 96
[2023-06-27] MEDS: Lactated Ringers 1,000 ML 80 ML IV (08:08)
--- NOTE | 2023-06-27 08:35 | ANES.PREOP_ITS ---
General Info Date of Service Date Performed: 06/27/23 Height: 5 ft Weight: 99.2 kg Body Mass Index (BMI): 42.7 Surgical Procedure: Operation Date: 06/27/23 09:05 Proposed Procedure Side Surgeon brigido Herrera MD Meds Allergies and Home Medications Allergies Allergy/AdvReac Type Severity Reaction Status Date / Time No Known Allergies Allergy Verified 06/27/23 07:47 Home Medication Medication Instructions Recorded colesevelam 625 mg tablet (WelChol) 625 mg PO BID 08/21/13 cyanocobalamin (vitamin B-12) 1,000 mcg PO DAILY 08/21/13 1,000 mcg tablet (Vitamin B-12) ergocalciferol (vitamin D2) 10 mcg 2,000 unit PO DAILY 08/21/13 (400 unit) tablet furosemide 20 mg tablet 40 mg PO BID 08/21/13 cholecalciferol (vitamin D3) 25 50 mcg PO DAILY 12/17/22 mcg (1,000 unit) capsule ketoconazole 2 % topical cream 1 applic topical BID 12/17/22 ropinirole 4 mg tablet 4 mg PO DAILY 12/17/22 nystatin 100,000 unit/gram topical 1 applic topical BID #15 grams 04/04/23 powder diphenoxylate-atropine 2.5 1 tab PO DAILY #14 tabs 06/17/23 mg-0.025 mg tablet (Lomotil) Current Visit Medications: Current Medications Generic Name Dose Route Start Last Admin Trade Name Freq PRN Reason Stop Dose Admin Hyoscyamine Sulfate 0.125 mg 06/26/23 20:08 Hyoscyamine 0.125 Mg Sl/Oral/Chew SL 07/26/23 20:07 DIRECTED PRN Ringer's Solution 1,000 mls @ 80 mls/hr 06/27/23 06:00 06/27/23 08:08 IV 07/26/23 23:59 80 mls/hr INFUSION HERMANN Administration IV Miscellaneous Supplies 1 each 06/27/23 06:00 Iv Access IV 07/26/23 23:59 DIRECTED HERMANN Ondansetron HCl 4 mg 06/26/23 20:08 Ondansetron 4 Mg/2 Ml Vial IVP 07/26/23 20:07 Q4H PRN PRN Nausea / Vomiting Sodium Chloride 0 ml 06/27/23 06:00 Normal Saline Flush 10 Ml Syr IV 10/20/23 23:59 PRN PRN Sodium Chloride 0 ml 06/27/23 06:00 Normal Saline 10 Ml Vial IJ 07/26/23 23:59 DIRECTED PRN Sterile Water 0 ml 06/27/23 06:00 Water,Injection,Sterile 10 Ml Vial IJ 07/26/23 23:59 DIRECTED PRN PFSH Active Problems Active Problems: Problem Status Onset Code Diarrhea R19.7 Hypokalemia E87.6 Heart failure I50.9 Hyperventilation syndrome F45.8 Sensorineural hearing loss of both ears H90.3 Greater trochanteric bursitis of both hips M70.61, M70.62 Osteoarthritis of left knee M17.12 Iliotibial band tendinitis of left side M76.32 Medical History Medical History Chronic diarrhea Chronic lower back pain Decreased hearing Edema Endometrial polyp Facial skin lesion GERD (gastroesophageal reflux disease) History of IBS History of prediabetes HTN (hypertension) Hx of hyperlipidemia Insomnia Knee pain, left MRSA infection Obesity CAMACHO on CPAP Restless leg syndrome Thoracic back pain Trochanteric bursitis of left hip Vitamin B12 deficiency (non anemic) Surgical History Surgical History H/O section History of bunionectomy History of tonsillectomy Hx of cholecystectomy Tobacco Smoking/Tobacco Use Status: Never Alcohol Alcohol Intake: current Alcohol intake frequency: holidays/special occasions only Substance Use Substance use: Never Substance use type: does not use Vital Signs and Lab Results Vital Signs Most Recent Vital Signs in EMR: Most Recent Vital Signs Temp Pulse Resp BP Pulse Ox 36.6 C 50 L 16 117/56 L 96 06/27/23 07:52 06/27/23 07:52 06/27/23 07:52 06/27/23 07:52 06/27/23 07:52 Lab Results Blood Type / Crossmatch: No Data to Display Complete Blood Count: White Blood Count 9.57 10^3/uL (4.4-10.8) 06/05/23 01:15 Red Blood Count 4.52 10^6/uL (3.93-5.22) 06/05/23 01:15 Hemoglobin 14.2 g/dL (11.2-15.7) 06/05/23 01:15 Hematocrit 43.0 % (36.0-46.0) 06/05/23 01:15 Platelet Count 231 10^3/uL (130-400) 06/05/23 01:15 Complete Metabolic Panel: Sodium 138 mmol/L (136-145) 06/05/23 01:15 Potassium 3.2 mmol/L (3.5-5.1) L 06/05/23 01:15 Chloride 103 mmol/L (98-107) 06/05/23 01:15 Carbon Dioxide 27.2 mmol/L (21.0-32.0) 06/05/23 01:15 BUN 23 mg/dL (7-18) H 06/05/23 01:15 Creatinine 0.9 mg/dL (0.55-1.02) 06/05/23 01:15 Est GFR (CKD-EPI 2020) 68.77 (mL/min/1.73m2) 06/05/23 01:15 Calcium 8.2 mg/dL (8.5-10.1) L 06/05/23 01:15 Albumin 3.6 g/dL (3.4-5.0) 06/05/23 01:15 Glucose 105 mg/dL (74-106) 06/05/23 01:15 Liver Function Panel: Alanine Aminotransferase (ALT/SGPT) 40 U/L (14-59) 06/05/23 01: 15 Aspartate Amino Transf (AST/SGOT) 18 U/L (15-37) 06/05/23 01:15 Coagulation Panel: No Data to Display Cardiac Panel: No Data to Display Arterial Blood Gas: No Data to Display Venous Blood Gas: No Data to Display Pancreas Panel: No Data to Display Thyroid Panel: No Data to Display Infectious Disease: No Data to Display Blood Cultures: No Data to Display Toxicology Panel: No Data to Display Imaging and Studies Imaging and Studies Study information below may be from another EMR and interpreted by another provider. Please see original notes in EMR for more complete details. EKG Summary: Conclusion Sinus rhythm...normal P axis, V-rate 60- 99 RBBB and LAFB...QRSd >120mS, axis(-40,240) Physician: Mild progression of RBBB compared to prior 11/18/22 Echocardiogram Summary: Conclusion Normal left ventricular wall thickness and chamber size. Estimated ejection fraction is 50 to 55%. No segmental wall motion abnormalities are identified Normal right ventricular size and systolic function Both atria are normal in size There are no structural or hemodynamically significant valvular abnormalities Mildly dilated ascending aorta measuring 3.53 cm Ventricular systolic pressure could not be estimated 03/26/23 Pulmonary Function Summary: Impression Normal pulmonary function testing Clinical Correlation therefore is recommended. 01/14/23 Anesthesia Assessment and Plan Anesthesia History Personal History: No History of Anesthesia Complications Family History: No Family History of Anesthesia Complications Exercise Tolerance Exercise Tolerance: Metabolic Equivalents<4 Pertinent Negatives Pertinent Negatives: No Symptoms of GERD, No Major Cardiovascular Symptoms or Complaints and No Major Pulmonary Symptoms or Complaints Cardiac & Pulmonary Exam Cardiac Exam: Normal S1/S2 Heart Sounds Pulmonary Exam: Clear Bilateral Breath Sounds Implantable Cardiac Device Does patient have a Pacemaker or an ICD?: No Airway Exam Known Difficult Airway: No Mallampati Class: 3 Mouth Opening: Narrow (< 3cm) Thyromental Distance: Greater than 3 cm Neck Range of Motion: Full ROM Neck Circumference: Thick Teeth Condition: Normal Dentition ASA Classification ASA Score: ASA 3 Emergency Case?: No NPO Status NPO Status: NPO Clears >2 hours, Solids >8 hours Anesthesia Plan Resuscitation Status: Full Code Anesthesia Technique: General Anesthesia Airway Planned: Natural Airway Monitors Used: Standard Monitors
[2023-06-27 08:48] VITALS: BMI 42.7
--- NOTE | 2023-06-27 09:16 | BOWEL_PTH ---
PATIENT: Ruby Ahumada LOC: [facility] U#:[id number] AGE/SX: 68/F ROOM: RE06/27/[address]: Tin eHrrera MD : [id number] BED: DIS: 06/27/2023 SPEC #: [id number] RECD: 06/27/23 12:34 STATUS: DARIUS REQ #: [id number] KASSIDY: 06/27/23 09:[address]: Tin Herrera DEPT: Surgical Specimen RECD BY: Rody Darnell ENTERED: 06/27/23 12:34 SP TYPE: Bowel OTHR DR: Martha Nixon Tissues: 1 - BIOPSY BOWEL Procedures: GROSS AND MICRO LEVEL 4 Comments: [id number]
[2023-06-27 09:26] VITALS: BP 99/54; PULSE 58; RESP 17; TEMP 36.2; O2SAT 94
--- NOTE | 2023-06-27 09:49 | W.ANESPOSTOP ---
Postoperative Evaluation Date, Time and Location Date Performed: 06/27/23 Time Performed: 09:50 Patient Location: Day Surgery Unit Vital Signs Most Recent Imported Vital Signs: Most Recent Vital Signs Temp Pulse Resp BP Pulse Ox 36.2 C L 58 L 17 99/54 L 94 06/27/23 09:26 06/27/23 09:26 06/27/23 09:26 06/27/23 09:26 06/27/23 09:26 Pain Score Most Recent Pain Score: Most Recent Pain Score Pain Level 0 06/27/23 09:26 Assessment Mental Status: Awake (Alert & Oriented to Patient Baseline) Airway and Respiratory Function: Patent airway with normal (patient baseline) respiratory exam Cardiovascular Function: Hemodynamically Stable Hydration Status: Adequately Hydrated Nausea & Vomiting: No Nausea or Vomiting Pain: Pt. Denies Any Pain Peripheral Nerve Block: Patient did not receive a nerve block
[2023-06-27 09:55] VITALS: BP 106/52; PULSE 50; RESP 18; TEMP 36.3; O2SAT 98
== END 2023-06-27 10:30 | disposition home or self-care (01) ==
PROVIDERS: PCP Family Medicine; Visit Provider Surgery
PROC: 0DJD8ZZ Inspection of Lower Intestinal Tract, Via Natural or Artificial Opening Endoscopic (ICD-10-PCS; CPT 45378; principal; 2023-06-27 09:00)
DX: K52.9 Noninfective gastroenteritis and colitis, unspecified (principal); K57.30 Diverticulosis of large intestine without perforation or abscess without bleeding; K21.9 Gastro-esophageal reflux disease without esophagitis; R73.03 Prediabetes; E66.9 Obesity, unspecified; Z68.41 Body mass index [BMI] 40.0-44.9, adult
CPT/HCPCS: 45380; 88305

== ENCOUNTER → 2023-07-10 11:32 | Outpatient (BNVA) | payer MEDICARE, SELFPAY | PROVIDERS: PCP Family Medicine; Referring Provider Family Medicine; Visit Provider Surgery | DX: Z48.815 Encounter for surgical aftercare following surgery on the digestive system (principal); K52.9 Noninfective gastroenteritis and colitis, unspecified | CPT/HCPCS: 99213 ==

== ENCOUNTER 2023-07-15 15:10 | Outpatient (REF) | payer MEDICARE, SELFPAY ==
[2023-07-15 16:30] LABS: Anion Gap 8.5 mmol/L (3-11); BUN 17 mg/dL (7-18); CO2 28.5 mmol/L (21.0-32.0); Chloride 104 mmol/L (98-107); Estimated GFR 60.61 (mL/min/1.73m2); Glucose 109 mg/dL (74-106); Potassium 4.1 mmol/L (3.5-5.1); Sodium 141 mmol/L (136-145)
== END 2023-07-15 15:11 | disposition home or self-care (01) ==
LOC: NCHCN 15:10
PROVIDERS: PCP Family Medicine; Visit Provider Family Medicine
DX: R73.03 Prediabetes (principal); R60.9 Edema, unspecified
CPT/HCPCS: 80048; 83036

== ENCOUNTER → 2023-07-31 10:14 | Outpatient (BNVA) | payer MEDICARE, SELFPAY | PROVIDERS: PCP Family Medicine; Referring Provider Family Medicine; Visit Provider Surgery | DX: Z48.815 Encounter for surgical aftercare following surgery on the digestive system (principal); K52.9 Noninfective gastroenteritis and colitis, unspecified | CPT/HCPCS: 99213 ==

== ENCOUNTER → 2023-09-13 00:49 | Outpatient (CLI) | payer MEDICARE, SELFPAY ==
--- NOTE | 2023-09-13 08:22 | DI.MAMMO_ITS ---
Exam(s) MAMMO SCREENING EXAM: MAMMO SCREENING CLINICAL HISTORY: SCREENING, Z12.31. TECHNIQUE: Bilateral full field digital CC and MLO mammographic images were obtained with 3D tomosyn thesis and utilizing computer aided detection (CAD). COMPARISON: Prior mammograms were reviewed. FINDINGS: There has been no significant change in the appearance and distribution of the fibroglandular tissue. There are no new spiculated masses nor malignant appearing microcalcification groups. There is no significant architectural distortion nor skin thickening-retraction. IMPRESSION: No radiographic evidence of malignancy. BI-RADS Category 1 - Negative Breast Density - Category A - Almost entirely fatty Breast density Category C or D implies that the patient has dense breast tissue. Dense breast tissue can make it harder to find cancer on a mammogram. Dense breast tissue is also associated with an incr eased risk of breast cancer. This information about the result of the mammogram report was provided to the patient to raise their awareness. Use this report when you speak with the patient about their risks for breast cancer, which includes their family history. At that time, you may recommend additional screening tests (Ultrasoun d or MRI) as these tests may add significant information. A negative radiographic report should not delay biopsy if a dominant or clinically suspicious mass is present. Up to ten percent of cancers are not identified on mammography. A negative report may reinforce clinical impression. Adenosis and dense breasts may obscure an underlying neoplasm. False positive reports average 6 to 10%. Patient will receive a letter notifying them of these results.
== END ==
PROVIDERS: PCP Family Medicine; Visit Provider Family Medicine
DX: Z12.31 Encounter for screening mammogram for malignant neoplasm of breast (principal)
CPT/HCPCS: 77063; 77067

== ENCOUNTER 2023-09-23 16:45 | Outpatient (REF) | payer MEDICARE, SELFPAY ==
[2023-09-23 17:23] LABS: Anion Gap 8.1 mmol/L (3-11); BUN 13 mg/dL (7-18); CO2 28.9 mmol/L (21.0-32.0); CREATININE 0.8 mg/dL (0.55-1.02); Calcium 8.6 mg/dL (8.5-10.1); Chloride 104 mmol/L (98-107); Estimated GFR 79.22 (mL/min/1.73m2); Glucose 89 mg/dL (74-106); Potassium 4.1 mmol/L (3.5-5.1); Sodium 141 mmol/L (136-145)
== END 2023-09-23 16:46 | disposition home or self-care (01) ==
LOC: NCHCN 16:45
PROVIDERS: PCP Family Medicine; Visit Provider Family Medicine
DX: R60.0 Localized edema (principal)
CPT/HCPCS: 80048

== ENCOUNTER → 2023-10-09 14:36 | Outpatient (BNVA) | payer MEDICARE, SELFPAY | PROVIDERS: PCP Family Medicine; Referring Provider Family Medicine; Visit Provider Physician Assistant Surgical | DX: F45.8 Other somatoform disorders (principal) | CPT/HCPCS: 99214 ==

== ENCOUNTER 2023-11-06 11:23 | Outpatient (REF) | payer MEDICARE, SELFPAY ==
[2023-11-06 15:24] LABS: Anion Gap 6.6 mmol/L (3-11); BUN 15 mg/dL (7-18); CO2 30.4 mmol/L (21.0-32.0); CREATININE 0.9 mg/dL (0.55-1.02); Calcium 9.1 mg/dL (8.5-10.1); Chloride 104 mmol/L (98-107); Estimated GFR 68.77 (mL/min/1.73m2); Glucose 99 mg/dL (74-106); Potassium 4.7 mmol/L (3.5-5.1); Sodium 141 mmol/L (136-145)
== END 2023-11-06 11:24 | disposition home or self-care (01) ==
LOC: NCHCN 11:23
PROVIDERS: PCP Family Medicine; Visit Provider Family Medicine
DX: R60.0 Localized edema (principal)
CPT/HCPCS: 80048

== ENCOUNTER → 2023-12-18 14:11 | Outpatient (CLI) | payer MEDICARE, SELFPAY ==
--- NOTE | 2023-12-18 14:15 | DI.RAD_ITS ---
Exam(s) XR HIP RT COMPLETE AP PELVIS EXAM: XR HIP RT COMPLETE AP PELVIS CLINICAL HISTORY: PAIN IN RT LEG M79.604. TECHNIQUE: 2D digital imaging was performed. COMPARISON: CR XR HIP LT COMPLETE AP PELVIS from 09/18/2021 FINDINGS: Two views. No evidence of pelvic nor hip fracture. Additional lateral view of the right hip does not reveal sig nificant narrowing nor osteophytes. Bone density normal. No osseous lesions. SI joints appear unre markable. IMPRESSION: No acute osseous findings in the pelvis and hips. DATA REPOSITORY: RADIATION DOSE DELIVERED:
--- NOTE | 2023-12-18 14:15 | DI.RAD_ITS ---
Exam(s) XR LUMBAR SPINE COMPLETE EXAM: XR LUMBAR SPINE COMPLETE CLINICAL HISTORY: PAIN IN RT LEG M79.604. TECHNIQUE: 2D digital imaging was performed. COMPARISON: CR XR LUMBAR SPINE COMPLETE from 02/16/2022 FINDINGS: Five views. No evidence of acute fracture nor listhesis. No significant disc space narrowing. Exaggerated lordo sis is unchanged from 2021. There is degenerative facet joint changes noted-moderate. No osseous le sions. No listhesis. No pars defects. IMPRESSION: Findings as above but with minimal if any significant radiographic change compared to February 2022. DATA REPOSITORY: RADIATION DOSE DELIVERED:
== END ==
PROVIDERS: PCP Family Medicine; Visit Provider Physician Assistant
DX: M79.604 Pain in right leg (principal)
CPT/HCPCS: 72110; 73502

== ENCOUNTER 2023-12-25 09:45 | Outpatient (REF) | payer MEDICARE, SELFPAY ==
[2023-12-25 15:37] LABS: TSH (W/Ref FT4) 2.51 uIU/mL (0.36-3.74)
[2023-12-25 16:59] LABS: Hemoglobin A1C 5.9 % (<5.7)
== END 2023-12-25 09:46 | disposition home or self-care (01) ==
LOC: NCHCN 09:45
PROVIDERS: PCP Family Medicine; Visit Provider Family Medicine
DX: E66.9 Obesity, unspecified (principal)
CPT/HCPCS: 83036; 84443

== ENCOUNTER → 2024-01-02 02:06 | Outpatient (CLI) | payer MEDICARE, SELFPAY ==
--- NOTE | 2024-01-02 | DI.NM_ITS ---
APPROVED REPORT Exam: Pharmacologic Patient Location: Out-Patient Room/Bed: Stress Nurse: Ophelia Lechuga RN Ordering Provider:MOSES KEARNS, Contact Number: [phone] BMI: 45.84 Baseline Rhythm: Sinus Rhythm, RBBB Indications: Dyspnea on Exertion Medical History Medical History: heart failure, hyperventilation syndrome, bilateral sensorineural hearing loss, hip bursitis, OA, obesity, CAMACHO, HTN Cardiac Medications: Furosemide, Spironolactone, Sertraline Allergies: NKA Cardiac Risk Factors: Family history, HTN, Obesity Previous Cardiac Procedures: None Pretest Chest Pain Characteristics: None Exercise History: Sedentary Physical Disabilities: Bursitis, arthritis Lung Sounds: LCTA Heart Sounds: S1/S2, regular Stress Test Details Test: Pharmacologic stress testing performed using 0.4 mg of regadenoson per 5 mL given IV over 10 s econds. Reason for pharmacologic stress test: changed from exercise stress test due to inability to reach t arget heart rate. Nuclear Acquisition: Rest Tc-99m/Stress Tc-99m 1 day Rest Isotope: Tc-99m Sestamibi. Dose: 12.0 Date: 01/02/2024 Injection Time: 9:20am Stress Isotope: Tc-99m Sestamibi. Dose: 36.0 Date: 01/02/2024 Injection Time: 11:10am HR Resting HR Supine: 65 bpm Max Heart Rate (APMHR): 150.810311 bpm Resting HR Standin bpm Target HR (85% APMHR): 127.984508 bpm Max HR Achieved: 111 bpm % of APMHR: 74.00 Recovery HR: 67 bpm BP Resting BP Supine: 122/72 mmHg Resting BP Standin/70 mmHg Max BP: 144/42 mmHg Recovery BP: 110/50 mmHg ECG Resting ECG: Sinus Rhythm, RBBB Ectopy: None Stress ECG: Sinus Tachycardia, RBBB ST Change: None Arrhythmia: None Recovery ECG: Sinus Rhythm, RBBB Recovery ST Change: None Recovery Arrhythmia: None Clinical Stress Symptoms: Shortness of breath Angina Score: None Rate Pressure Product: [id number] Stress ECG Conclusion 1. Resting electrocardiogram showed LAFB, RBBB 2. Patient underwent testing using low-level exercise also with regadenoson 3. Peak heart rate achieved was 74% for age 4. Electrocardiographic portion of the test was nondiagnostic 5. See MPI report Stress Test Summary STAGE Time (mins) Speed (mph) Grade (%) HR BP SpO2 SYMPTOMS METS Supine 65 93% Standing 56 1 3 1.7 10 107 89-92% shortness of breath 4.5 1 min post Lexiscan injection 86 144/42 94% shortness of breath 3 min post Lexiscan injection 75 130/48 97% lightheaded 6 min post Lexiscan injection 65 110/50 95% Symptoms resolved Patient wanted to attempt an exercise tolerance test today. We decided to have patient try a modified demetrio protocol (speed 1.7 mph and 0% grade). Patient exercised at these settings for 2-3 minutes and had to stop due to fatigue and safety concerns on the treadmill. Patient was transitioned to the [facility] where she was given Lexiscan and able to comfortably complete the stress portion of her test. MPI Conclusion Myocardial perfusion is normal There is no ischemia or prior infarction EF 73% with normal wall motion Radiologist Interpretation Radiologist Interpretation by: Chente Herrera MD Interpretation Date/Time: 01/02/2024 16:12:31
[2024-01-02] MEDS: Regadenoson 0.4 MG/5 ML SYR IVP (11:36)
== END ==
PROVIDERS: PCP Family Medicine; Visit Provider Family Medicine
DX: R06.09 Other forms of dyspnea (principal)
CPT/HCPCS: 78452; 93016; 93018; 93017; J2785

== ENCOUNTER → 2024-01-08 14:44 | Outpatient (BNVA) | payer MEDICARE, SELFPAY | PROVIDERS: PCP Family Medicine; Referring Provider Family Medicine; Visit Provider Physician Assistant Surgical | DX: F45.8 Other somatoform disorders (principal) | CPT/HCPCS: 99214 ==

== ENCOUNTER → 2024-04-07 10:33 | Outpatient (BNVA) | payer MEDICARE, SELFPAY | PROVIDERS: PCP Family Medicine; Referring Provider Family Medicine; Visit Provider Physician Assistant Surgical | DX: F45.8 Other somatoform disorders (principal) | CPT/HCPCS: 99214 ==

== ENCOUNTER 2024-07-03 11:31 | Outpatient (CLI) | payer MEDICARE, SELFPAY ==
--- NOTE | 2024-07-03 11:33 | DI.RAD_ITS ---
Exam(s) XR KNEE RT 4V AP,LAT,NABEEL,PAT EXAM: XR KNEE RT 4V AP,LAT,NABEEL,PAT CLINICAL HISTORY: evalutate pathology,rt knee pain, m25.561. TECHNIQUE: 2D digital imaging was performed of the right knee. Four views obtained. Merchant, AP, la teral and PA tunnel views were obtained. COMPARISON: No priors for comparison. FINDINGS: BONES: No acute fracture is present. No bony destructive lesion is seen. JOINTS: The knee is normally aligned. There is a small joint effusion. SOFT TISSUE: Normal. IMPRESSION: There is a small joint effusion. DATA REPOSITORY: RADIATION DOSE DELIVERED:
== END 2024-07-03 11:51 ==
LOC: DI 11:34
PROVIDERS: PCP Family Medicine; Visit Provider Nurse Practitioner Family
DX: M25.561 Pain in right knee (principal)
CPT/HCPCS: 73564

== ENCOUNTER 2024-12-28 15:09 | Outpatient (REF) | payer MEDICARE, SELFPAY ==
[2024-12-28 21:32] LABS: ALT 27 U/L (14-59); AST 22 U/L (15-37); Albumin 4.1 g/dL (3.4-5.0); Alkaline Phosphatase 88 U/L (46-116); Anion Gap 9.2 mmol/L (3-11); BUN 18 mg/dL (7-18); Bilirubin, Total 0.6 mg/dL (0.2-1.0); CO2 32.8 mmol/L (21.0-32.0); CREATININE 1.2 mg/dL (0.55-1.02); Calcium 9.3 mg/dL (8.5-10.1); Chloride 101 mmol/L (98-107); Estimated GFR 48.39 (mL/min/1.73m2); Glucose 106 mg/dL (74-106); Potassium 4.8 mmol/L (3.5-5.1); Sodium 143 mmol/L (136-145); Total Protein 7.6 g/dL (6.4-8.2)
[2024-12-28 22:52] LABS: Hemoglobin A1C 5.8 % (<5.7)
== END 2024-12-28 15:10 | disposition home or self-care (01) ==
LOC: NCHCN 15:09
PROVIDERS: PCP Family Medicine; Visit Provider Family Medicine
DX: R73.03 Prediabetes (principal)
CPT/HCPCS: 80053; 83036

== ENCOUNTER 2025-01-28 16:32 | Outpatient (REF) | payer MEDICARE, SELFPAY ==
[2025-01-28 15:29] LABS: Anion Gap 8.1 mmol/L (3-11); BUN 22 mg/dL (7-18); CO2 29.9 mmol/L (21.0-32.0); Calcium 9.5 mg/dL (8.5-10.1); Chloride 104 mmol/L (98-107); Estimated GFR 60.23 (mL/min/1.73m2); Glucose 76 mg/dL (74-106); Potassium 4.8 mmol/L (3.5-5.1); Sodium 142 mmol/L (136-145)
[2025-01-28 16:07] LABS: COMMENT (LAB VIEW ONLY) 106.42 mg/dL; Microalb ug/mg Crea 17.4 ug/mg Cr
== END 2025-01-28 16:33 | disposition home or self-care (01) ==
LOC: NCHCN 16:32
PROVIDERS: PCP Family Medicine; Visit Provider Family Medicine
DX: R60.9 Edema, unspecified (principal)
CPT/HCPCS: 80048; 82043; 82570

== ENCOUNTER 2025-03-03 00:25 | Outpatient (CLI) | payer MEDICARE, SELFPAY ==
--- NOTE | 2025-03-03 12:57 | DI.MAMMO_ITS ---
Exam(s) MAMMO SCREENING EXAM: MAMMO SCREENING CLINICAL HISTORY: Screening, Z12.31 TECHNIQUE: Mammograms were interpreted according to the usual protocol including computer analysis w [employer] CAD system, tomosynthesis and C-view imaging. COMPARISON: 2014 through 2022 FINDINGS: The breasts are composed of scattered fibroglandular densities, Breast Density category B. No suspicious masses or suspicious microcalcifications are seen. No skin thickening or abnormal axillary lymph nodes are seen. There has been no significant change from prior exams. IMPRESSION: BI-RADS Category 1, Negative mammogram Yearly screening mammography is recommended. Breast Density - Category B, scattered fibroglandular densities. Breast density Category C or D implies that the patient has dense breast tissue. Dense breast tissue can make it harder to find cancer on a mammogram. Dense breast tissue is also associated with an incr eased risk of breast cancer. This information about the result of the mammogram report was provided to the patient to raise their awareness. Use this report when you speak with the patient about their risks for breast cancer, which includes their family history. At that time, you may recommend additional screening tests (Ultrasoun d or MRI) as these tests may add significant information. A negative radiographic report should not delay biopsy if a dominant or clinically suspicious mass is present. Up to ten percent of cancers are not identified on mammography. A negative report may reinforce clinical impression. Adenosis and dense breasts may obscure an underlying neoplasm. False positive reports average 6 to 10%. Patient will receive a letter notifying them of these results.
== END 2025-03-03 00:45 ==
LOC: DI 00:26
PROVIDERS: PCP Family Medicine; Visit Provider Family Medicine
DX: Z12.31 Encounter for screening mammogram for malignant neoplasm of breast (principal); R92.323 Mammographic fibroglandular density, bilateral breasts
CPT/HCPCS: 77063; 77067

== ENCOUNTER 2025-03-15 01:48 | Outpatient (CLI) | payer MEDICARE, SELFPAY ==
--- NOTE | 2025-03-15 | DI.DEXA_ITS ---
Exam(s) XR DEXA BONE DENSITY W/WO PARISH EXAM: XR DEXA BONE DENSITY W/WO PARISH CLINICAL HISTORY: Asymptomatic postmenopausal state, Z78.0 TECHNIQUE: Routine DEXA evaluation of the lumbar spine, hip, or forearm. COMPARISON: Prior DEXA scan performed January 2020. FINDINGS: Performed on a [employer] unit. Lateral image: No compression fracture evident. Lumbar Spine total T-score: 2.0 which is normal range. Prior reading in January 2020 was 1.7. Hip total T-score:-0.8 which is normal range. Prior reading in January 2020 was -0.9 Independent reading at the level of the femoral neck yields T-score of -1.3 which is osteopenia rang e. Forearm total T-score: -1.2 which is osteopenia range. Prior reading in January 2020 was identical. IMPRESSION: Bone mineral density measures in the osteopenia range. Fracture risk is moderate. Note: Any spine fracture indicates 5x risk for subsequent spine fracture and 2x risk for subsequent h ip fracture. World Health Organization criteria for BMD interpretation classify patients: Normal...... T- Score at or above -1.0 Osteopenic... T- Score between -1.0 and -2.5 Osteoporosis... T-Score at or below -2.5
== END 2025-03-15 02:08 ==
LOC: DI 01:48
PROVIDERS: PCP Family Medicine; Visit Provider Family Medicine
DX: Z78.0 Asymptomatic menopausal state (principal); Z13.820 Encounter for screening for osteoporosis; M85.88 Other specified disorders of bone density and structure, other site
CPT/HCPCS: 77080